=== PATIENT | male | born 1960 | race African-American/Black ===

== ENCOUNTER 2017-05-14 11:41 | Emergency (ER) | payer MEDICAID ==
[~2017-05-14] VITALS: Ht 180.3 cm; Wt 83.0 kg
[~2017-05-14 11:41] MED LIST: ASPI-1158 PO; FURO40TA5 PO; NIFE30TA43 PO; SEVE800T8 PO; SODI650T PO
[2017-05-14 11:48] VITALS: BP 165/98
== END 2017-05-14 14:11 | disposition home or self-care (01) ==
LOC: ER 12:10
DX: Z00.8 Encounter for other general examination (principal); E11.9 Type 2 diabetes mellitus without complications; I12.9 Hypertensive chronic kidney disease with stage 1 through stage 4 chronic kidney disease, or unspecified chronic kidney disease; N18.9 Chronic kidney disease, unspecified; F12.10 Cannabis abuse, uncomplicated; Z79.82 Long term (current) use of aspirin; Z99.2 Dependence on renal dialysis; Z88.6 Allergy status to analgesic agent
CPT/HCPCS: 71020; 99284

== ENCOUNTER 2017-12-12 07:09 | Emergency (ER) | payer MEDICAID ==
[~2017-12-12] VITALS: Ht 180.3 cm; Wt 82.0 kg
[2017-12-12 07:34] VITALS: BP 155/95
[2017-12-12] MEDS ORDERED: TRAMADOL 50MG TABLET PO ONE (08:15)
== END 2017-12-12 09:40 | disposition home or self-care (01) ==
LOC: ER 07:27
DX: M23.8X2 Other internal derangements of left knee (principal); I12.0 Hypertensive chronic kidney disease with stage 5 chronic kidney disease or end stage renal disease; N18.6 End stage renal disease; Z99.2 Dependence on renal dialysis; Z98.890 Other specified postprocedural states; Z88.6 Allergy status to analgesic agent
CPT/HCPCS: 73562; 99284

== ENCOUNTER 2018-02-24 17:16 | Inpatient (IN) | payer MEDICAID ==
[~2018-02-24] VITALS: Ht 304.8 cm; Wt 82.6 kg
[2018-02-24] MEDS ORDERED: MORPHINE SULFATE 4 MG/ML CPJ (NOT FOR IM USE) IV STA (21:11)
[2018-02-24] MEDS ORDERED: ONDANSETRON HCL 4MG/2ML VIAL IV STA (21:11)
[2018-02-24 21:33] LABS: CHLORIDE 103 mEq/L (98-107)
[2018-02-24 21:34] LABS: BASOPHILS % 1.5 % (0.0-2.0); EOSINOPHILS % 3.9 % (0.0-5.0); LYMPHOCYTES % 16.1 % (20.0-50.0); MEAN CORPUSCULAR HEMOGLOBIN 33.3 pg (28.0-32.0); MEAN CORPUSCULAR VOLUME 97.6 fL (80.0-94.0); MEAN PLATELET VOLUME 7.7 fl (7.4-10.4); MONOCYTES % 8.2 % (2.0-8.0); NEUTROPHILS % 70.3 % (40.0-76.0); PLATELET 280 x1000/uL (130-400); RED BLOOD CELL COUNT 3.59 mill/uL (4.7-6.1); RED CELL DISTRIBUTION WIDTH 16.9 % (11.6-14.6)
[2018-02-24] MEDS ORDERED: IOHEXOL-300 100 ML BOTTLE ONE (22:04)
[2018-02-25] VITALS (7 sets, daily range): BP systolic 138–158; BP diastolic 75–93
[2018-02-25] MEDS ORDERED: ACETAMINOPHEN 325MG TABLET PO PRN (08:15)
[2018-02-25] MEDS ORDERED: IPRATROPIUM/ALBUTEROL 0.5-3(2.5)MG/3ML NEB INH PRN (08:15)
[2018-02-25] MEDS ORDERED: HYDROCODONE/ACETAMINOPHEN 5/325MG TABLET PO PRN (08:15)
[2018-02-25] MEDS ORDERED: ACETAMINOPHEN 650MG SUPP PR PRN (08:15)
[2018-02-25] MEDS ORDERED: ACETAMINOPHEN 650MG/20.3ML UDC GT PRN (08:15)
[2018-02-25] MEDS ORDERED: DOCUSATE SODIUM 100MG CAPSULE PO PRN (08:15)
[2018-02-25] MEDS ORDERED: LORAZEPAM 0.5MG TABLET PO PRN (08:15)
[2018-02-25] MEDS ORDERED: DIPHENHYDRAMINE 50MG/ML VIAL IV PRN (08:15)
[2018-02-25] MEDS ORDERED: NA PHOS,M-B/NA PHOS,DI-BA ENEMA 118ML PR PRN (08:15)
[2018-02-25] MEDS ORDERED: GUAIFENESIN 200MG/10ML SUGAR FREE UDC PO PRN (08:15)
[2018-02-25] MEDS ORDERED: MAGNESIUM/ALUMINUM HYDROXIDE/SIMETHICONE 30ML UDC PO PRN (08:15)
[2018-02-25] MEDS ORDERED: ONDANSETRON HCL 4MG/2ML VIAL IV PRN (08:15)
[2018-02-25] MEDS: SEVELAMER CARBONATE 800 MG TABLET PO SCH ×3 (09:08→17:36)
[2018-02-25] MEDS: ASPIRIN 81MG EC TABLET PO SCH (09:08)
[2018-02-25] MEDS: HYDROCODONE/ACETAMINOPHEN 10/325MG TABLET PO PRN ×2 (09:17→13:17)
[2018-02-25] MEDS: NIFEDIPINE XL 30MG TAB PO SCH (17:37)
[2018-02-25] MEDS: LOSARTAN POTASSIUM 25 MG TABLET PO SCH (20:56)
[2018-02-26 04:00] VITALS: BP 128/77
[2018-02-26] MEDS: NIFEDIPINE XL 30MG TAB PO SCH ×2 (06:00→18:07)
[2018-02-26 07:38] VITALS: BP 178/106
[2018-02-26 07:38] LABS: INR 1.1; PROTHROMBIN TIME 11.2 sec (9.4-11.6)
[2018-02-26 07:41] LABS: BASOPHILS % 2.5 % (0.0-2.0); EOSINOPHILS % 5.1 % (0.0-5.0); HEMATOCRIT. 32.6 % (42.0-52.0); LYMPHOCYTES % 23.2 % (20.0-50.0); MEAN CORPUSCULAR HEMOGLOBIN 32.7 pg (28.0-32.0); MEAN CORPUSCULAR VOLUME 97.3 fL (80.0-94.0); MEAN PLATELET VOLUME 7.5 fl (7.4-10.4); MONOCYTES % 8.7 % (2.0-8.0); NEUTROPHILS % 60.5 % (40.0-76.0); PLATELET 223 x1000/uL (130-400); RED BLOOD CELL COUNT 3.35 mill/uL (4.7-6.1); RED CELL DISTRIBUTION WIDTH 16.9 % (11.6-14.6)
[2018-02-26 08:07] LABS: CHLORIDE 102 mEq/L (98-107)
[2018-02-26 08:16] LABS: LDL CHOLESTEROL 55 mg/dL (5-100)
[2018-02-26 08:18] LABS: HDL CHOLESTEROL 74 mg/dL (40-59); PHOSPHORUS 5.1 mg/dL (2.5-4.9)
[2018-02-26 08:22] LABS: CREATINE KINASE 76 IU/L (39-308)
[2018-02-26 08:23] LABS: T4 FREE 0.77 ng/dL (0.76-1.46)
[2018-02-26] MEDS: SEVELAMER CARBONATE 800 MG TABLET PO SCH ×3 (09:06→18:07)
[2018-02-26] MEDS: ASPIRIN 81MG EC TABLET PO SCH (09:06)
[2018-02-26] MEDS: LOSARTAN POTASSIUM 25 MG TABLET PO SCH ×2 (09:12→20:39)
[2018-02-26] MEDS: HYDROCODONE/ACETAMINOPHEN 10/325MG TABLET PO PRN ×2 (09:13→20:40)
[2018-02-26] MEDS ORDERED: CLONIDINE 0.1MG TABLET PO PRN (10:00)
[2018-02-26 12:00] VITALS: BP 130/77
[2018-02-26 16:00] VITALS: BP 136/80
[2018-02-26 20:00] VITALS: BP 155/76
[2018-02-27] VITALS: BP 145/81
[2018-02-27 04:00] VITALS: BP 140/83
[2018-02-27] MEDS: NIFEDIPINE XL 30MG TAB PO SCH (06:11)
[2018-02-27 06:21] LABS: BASOPHILS % 2.6 % (0.0-2.0); EOSINOPHILS % 8.1 % (0.0-5.0); HEMATOCRIT. 33.4 % (42.0-52.0); HEMOGLOBIN. 11.1 g/dL (14.0-18.0); LYMPHOCYTES % 27.6 % (20.0-50.0); MEAN CORPUSCULAR HEMOGLOBIN 32.5 pg (28.0-32.0); MEAN CORPUSCULAR VOLUME 98.2 fL (80.0-94.0); MEAN PLATELET VOLUME 7.3 fl (7.4-10.4); MONOCYTES % 11.6 % (2.0-8.0); NEUTROPHILS % 50.1 % (40.0-76.0); PLATELET 207 x1000/uL (130-400); RED BLOOD CELL COUNT 3.41 mill/uL (4.7-6.1); RED CELL DISTRIBUTION WIDTH 17.2 % (11.6-14.6)
[2018-02-27 07:07] LABS: CHLORIDE 101 mEq/L (98-107)
[2018-02-27] MEDS ORDERED: NIFE30TA94 MT (07:55)
[2018-02-27] MEDS ORDERED: LOSA25TA12 PO (07:55)
[2018-02-27 08:00] VITALS: BP 113/83
[2018-02-27] MEDS: SEVELAMER CARBONATE 800 MG TABLET PO SCH ×2 (08:54→12:49)
[2018-02-27] MEDS: ASPIRIN 81MG EC TABLET PO SCH (08:55)
[2018-02-27] MEDS: LOSARTAN POTASSIUM 25 MG TABLET PO SCH (09:00)
[2018-02-27 11:26] VITALS: BP 113/83
[2018-02-27 12:00] VITALS: BP 132/73
[2018-02-27 13:23] VITALS: BP 132/73
[2018-02-27] MEDS: HYDROCODONE/ACETAMINOPHEN 10/325MG TABLET PO PRN (13:23)
== END 2018-02-27 15:40 | disposition home or self-care (01) | DRG 347 ==
LOC: ER 18:31 → 8WST 23:58 → ENRESERV 02-25 01:59
PROVIDERS: ADMIT Internal Medicine; ATTEND Internal Medicine
PROC: 5A1D70Z Performance of Urinary Filtration, Intermittent, Less than 6 Hours Per Day (ICD-10-PCS; principal; 2018-02-25)
DX: S32.029A Unspecified fracture of second lumbar vertebra, initial encounter for closed fracture (principal); I13.2 Hypertensive heart and chronic kidney disease with heart failure and with stage 5 chronic kidney disease, or end stage renal disease; N18.6 End stage renal disease; E83.39 Other disorders of phosphorus metabolism; E87.5 Hyperkalemia; S32.019A Unspecified fracture of first lumbar vertebra, initial encounter for closed fracture; S32.039A Unspecified fracture of third lumbar vertebra, initial encounter for closed fracture; S32.049A Unspecified fracture of fourth lumbar vertebra, initial encounter for closed fracture; I50.32 Chronic diastolic (congestive) heart failure; D64.9 Anemia, unspecified; F41.9 Anxiety disorder, unspecified; Z99.2 Dependence on renal dialysis; G89.4 Chronic pain syndrome; W01.0XXA Fall on same level from slipping, tripping and stumbling without subsequent striking against object, initial encounter; Z88.6 Allergy status to analgesic agent; Y93.89 Activity, other specified; Y92.89 Other specified places as the place of occurrence of the external cause; Y99.8 Other external cause status; Z82.49 Family history of ischemic heart disease and other diseases of the circulatory system; Z86.73 Personal history of transient ischemic attack (TIA), and cerebral infarction without residual deficits; Z91.19 Patient's noncompliance with other medical treatment and regimen; M94.0 Chondrocostal junction syndrome [Tietze]
CPT/HCPCS: 36415; 70450; 71045; 71260; 72148; 74177; 80048; 80053; 80061; 80307; 82550; 83690; 83735; 84100; 84439; 84443; 84481; 84484; 85025; 85610; 93005; 93970; 96374; 96375; 97162; 99285; J2270; J2405; J7030; Q9967

== ENCOUNTER 2018-07-08 17:43 | Inpatient (IN) | payer MEDICAID ==
[~2018-07-08] VITALS: Ht 180.3 cm; Wt 82.6 kg
[~2018-07-08 17:43] MED LIST changes: +BENZ100C86 PO; -FURO40TA5 PO; -NIFE30TA43 PO; +NIFE90TA34 PO; +P20 PO; -SODI650T PO
[2018-07-08] MEDS ORDERED: HYDRALAZINE 20MG/ML VIAL IV ONE (18:15)
[2018-07-08] MEDS ORDERED: LABETALOL 5MG/ML SYR 20 MG/4 ML SYRINGE IV ONE (18:45)
[2018-07-08 19:06] LABS: BG BASE EXCESS -4.9 mmol/L (-2.0-2.0); BG DEOXYHEMOGLOBIN 4.3 % (0.0-5.0); BG FRACTION INSPIRED OXYGEN 21; BG HCO3 ACT 18.9 mmol/L (22.0-26.0); BG METHEMOGLOBIN 0.2 % (0.0-1.5); BG OXYGEN SATURATION 95.6 % (92.0-98.5); BG OXYHEMOGLOBIN 94.5 % (94.0-97.0); BG PCO2 31.3 mmHg (35.0-45.0); BG PH 7.399 (7.350-7.450); BG PO2 86.7 mmHg (75.0-100.0); BG SAMPLE SITE RIGHT RADIAL; BG TOTAL HEMOGLOBIN 12.6 g/dL (12.0-18.0); BG VENT MODE ROOM AIR
[2018-07-08 19:29] LABS: BASOPHILS % 1.2 % (0.0-2.0); CHLORIDE 105 mEq/L (98-107); EOSINOPHILS % 3.5 % (0.0-5.0); HEMATOCRIT. 35.5 % (42.0-52.0); HEMOGLOBIN. 11.6 g/dL (14.0-18.0); LYMPHOCYTES % 12.6 % (20.0-50.0); MEAN CORPUSCULAR HEMOGLOBIN 32.7 pg (28.0-32.0); MEAN CORPUSCULAR VOLUME 99.9 fL (80.0-94.0); MEAN PLATELET VOLUME 7.8 fl (7.4-10.4); MONOCYTES % 12.1 % (2.0-8.0); NEUTROPHILS % 70.6 % (40.0-76.0); PLATELET 230 x1000/uL (130-400); RED BLOOD CELL COUNT 3.55 mill/uL (4.7-6.1); RED CELL DISTRIBUTION WIDTH 16.9 % (11.6-14.6)
[2018-07-08 19:35] LABS: INR 1.1; PARTIAL THROMBOPLASTIN TIME 30.1 sec (23.4-31.0); PROTHROMBIN TIME 11.1 sec (9.1-11.1)
[2018-07-08 19:37] LABS: ETHANOL BLOOD < 10 mg/dL
[2018-07-08 19:39] LABS: PHOSPHORUS 5.8 mg/dL (2.5-4.9)
[2018-07-08] MEDS ORDERED: ENALAPRIL 2.5MG/2ML VIAL 2ML IV NR (23:45)
[2018-07-09 00:52] VITALS: BP 166/91
[2018-07-09 00:54] VITALS: BP 166/91
[2018-07-09 04:00] VITALS: BP 144/82
[2018-07-09] MEDS ORDERED: IPRATROPIUM/ALBUTEROL 0.5-3(2.5)MG/3ML NEB INH PRN (04:00)
[2018-07-09] MEDS ORDERED: DIPHENHYDRAMINE 50MG/ML VIAL IV PRN (04:00)
[2018-07-09] MEDS ORDERED: HYDROMORPHONE HCL/PF 2MG/ML CPJ IV PRN (04:00)
[2018-07-09] MEDS ORDERED: DOCUSATE SODIUM 100MG CAPSULE PO PRN (04:00)
[2018-07-09] MEDS ORDERED: ONDANSETRON 4MG ODT PO PRN (04:00)
[2018-07-09 08:00] VITALS: BP_SYST 146; BP_DIAS 92; BP_DIAS 96
[2018-07-09] MEDS: AMLODIPINE 10MG TABLET PO SCH (09:01)
[2018-07-09 12:00] VITALS: BP 156/87
[2018-07-09 20:00] VITALS: BP 180/102
[2018-07-09] MEDS: CLONIDINE 0.1MG TABLET PO PRN (22:20)
[2018-07-10] VITALS: BP 150/89
[2018-07-10 04:00] VITALS: BP 174/105
[2018-07-10] MEDS: CLONIDINE 0.1MG TABLET PO PRN ×2 (04:16→12:51)
[2018-07-10 08:00] VITALS: BP 146/93
[2018-07-10] MEDS: AMLODIPINE 10MG TABLET PO SCH (09:27)
[2018-07-10] MEDS: LOSARTAN POTASSIUM 50 MG TABLET PO SCH ×2 (10:45→12:50)
[2018-07-10 12:00] VITALS: BP 179/108
[2018-07-10] MEDS ORDERED: HEPARIN SODIUM 1,000 UNIT/1ML VIAL IV NR (15:00)
[2018-07-10 15:17] LABS: CHLORIDE 104 mEq/L (98-107)
[2018-07-10 15:25] LABS: BASOPHILS % 1.5 % (0.0-2.0); EOSINOPHILS % 3.2 % (0.0-5.0); HEMATOCRIT. 34.2 % (42.0-52.0); HEMOGLOBIN. 11.3 g/dL (14.0-18.0); LYMPHOCYTES % 15.5 % (20.0-50.0); MEAN CORPUSCULAR HEMOGLOBIN 33.3 pg (28.0-32.0); MEAN CORPUSCULAR VOLUME 100.5 fL (80.0-94.0); MEAN PLATELET VOLUME 8.1 fl (7.4-10.4); MONOCYTES % 9.5 % (2.0-8.0); NEUTROPHILS % 70.3 % (40.0-76.0); PLATELET 202 x1000/uL (130-400); RED CELL DISTRIBUTION WIDTH 16.3 % (11.6-14.6)
[2018-07-10 16:00] VITALS: BP 161/104
[2018-07-11] VITALS: BP 143/88
[2018-07-11 04:00] VITALS: BP 145/89
[2018-07-11 09:00] VITALS: BP 134/77
[2018-07-11] MEDS: LOSARTAN POTASSIUM 50 MG TABLET PO SCH (09:00)
[2018-07-11] MEDS: AMLODIPINE 10MG TABLET PO SCH (09:00)
[2018-07-11 10:24] VITALS: BP 125/73
== END 2018-07-11 12:30 | disposition home or self-care (01) | DRG 194 ==
LOC: ER 17:43 → 7WST 19:45 → EDBEDREQ 19:46 → EDBEDREQTM 19:46 → ENRESERV 23:46
PROVIDERS: ADMIT Hospitalist; ATTEND Hospitalist
PROC: 5A1D70Z Performance of Urinary Filtration, Intermittent, Less than 6 Hours Per Day (ICD-10-PCS; principal; 2018-07-09)
PROC: 5A1D70Z Performance of Urinary Filtration, Intermittent, Less than 6 Hours Per Day (ICD-10-PCS; 2018-07-10)
DX: I13.2 Hypertensive heart and chronic kidney disease with heart failure and with stage 5 chronic kidney disease, or end stage renal disease (principal); N17.9 Acute kidney failure, unspecified; I27.20 Pulmonary hypertension, unspecified; N18.6 End stage renal disease; I50.33 Acute on chronic diastolic (congestive) heart failure; D63.1 Anemia in chronic kidney disease; M54.9 Dorsalgia, unspecified; F41.9 Anxiety disorder, unspecified; G89.4 Chronic pain syndrome; Z99.2 Dependence on renal dialysis; Z91.15 Patient's noncompliance with renal dialysis; Z88.6 Allergy status to analgesic agent; Z79.82 Long term (current) use of aspirin; Z79.899 Other long term (current) drug therapy; Z91.81 History of falling; Z87.81 Personal history of (healed) traumatic fracture; Z82.49 Family history of ischemic heart disease and other diseases of the circulatory system
CPT/HCPCS: 36415; 36600; 71045; 80053; 82375; 82805; 83690; 83735; 84100; 84484; 85025; 85610; 85730; 93005; 93306; 96374; 96375; 99291; G0482; J1644; J3490; J7030; J7050

== ENCOUNTER 2018-07-17 20:59 | Inpatient (IN) | payer MEDICAID ==
[~2018-07-17] VITALS: Ht 152.4 cm; Wt 79.4 kg
[2018-07-18 00:33] LABS: HEMATOCRIT. 34.5 % (42.0-52.0); HEMOGLOBIN. 11.4 g/dL (14.0-18.0); MEAN CORPUSCULAR HEMOGLOBIN 32.6 pg (28.0-32.0); MEAN CORPUSCULAR VOLUME 98.2 fL (80.0-94.0); MEAN PLATELET VOLUME 7.9 fl (7.4-10.4); PLATELET 295 x1000/uL (130-400); RED BLOOD CELL COUNT 3.51 mill/uL (4.7-6.1)
[2018-07-18 00:46] LABS: INR 1.1; PARTIAL THROMBOPLASTIN TIME 34.1 sec (23.4-31.0); PROTHROMBIN TIME 10.9 sec (9.1-11.1)
[2018-07-18 00:49] LABS: CHLORIDE 102 mEq/L (98-107)
[2018-07-18] MEDS ORDERED: CALCIUM GLUCONATE 100MG/ML 10ML VIAL IV ONE (01:00)
[2018-07-18] MEDS ORDERED: FUROSEMIDE 40MG/4ML VIAL IVP NR (01:45)
[2018-07-18 04:00] VITALS: BP 150/70
[2018-07-18 04:56] LABS: CLARITY URINE CLEAR (CLEAR); COLOR URINE YELLOW (YELLOW); KETONES URINE NEGATIVE (NEGATIVE); LEUKOCYTE ESTERASE URINE NEGATIVE (NEGATIVE); NITRITE URINE NEGATIVE (NEGATIVE); OCCULT BLOOD URINE 1+ (NEGATIVE); PH URINE >=9.0 (4.5-8.0); PROTEIN URINE 2+ (NEGATIVE); SPECIFIC GRAVITY URINE 1.009 (1.005-1.030); UROBILINOGEN URINE 0.2 E.U./dL (0.2-1.0)
[2018-07-18 05:17] LABS: PLATELET ESTIMATE NORMAL
[2018-07-18 08:00] VITALS: BP 149/94
[2018-07-18] MEDS ORDERED: ONDANSETRON HCL 4MG/2ML INJ IV PRN (09:30)
[2018-07-18] MEDS ORDERED: ACETAMINOPHEN 650MG SUPP PR PRN (09:30)
[2018-07-18] MEDS ORDERED: MAGNESIUM/ALUMINUM HYDROXIDE/SIMETHICONE 30ML UDC PO PRN (09:30)
[2018-07-18] MEDS ORDERED: ACETAMINOPHEN 325MG TABLET PO PRN (09:30)
[2018-07-18] MEDS ORDERED: HYDROCODONE/ACETAMINOPHEN 10/325MG TABLET PO PRN (09:30)
[2018-07-18] MEDS ORDERED: HYDROCODONE/ACETAMINOPHEN 5/325MG TABLET PO PRN (09:30)
[2018-07-18] MEDS ORDERED: IPRATROPIUM/ALBUTEROL 0.5-3(2.5)MG/3ML NEB INH PRN (09:30)
[2018-07-18] MEDS ORDERED: ACETAMINOPHEN 650MG/20.3ML UDC GT PRN (09:30)
[2018-07-18] MEDS ORDERED: FURO-152 PO (10:59)
[2018-07-18 12:00] VITALS: BP 143/89
[2018-07-18] MEDS ORDERED: DIPHENHYDRAMINE 50MG/ML VIAL IV NR (12:15)
[2018-07-18] MEDS: NIFEDIPINE XL 60MG TAB PO SCH (12:45)
[2018-07-18] MEDS ORDERED: DIPHENHYDRAMINE 50MG/ML VIAL IV PRN (13:00)
[2018-07-18] MEDS ORDERED: BENZONATATE 100MG CAPSULE PO PRN (13:00)
[2018-07-18 13:37] LABS: AMMONIA 59 uMol/L (<32)
[2018-07-18] MEDS: ASPIRIN 81MG TABLET PO SCH (14:07)
[2018-07-18] MEDS ORDERED: HEPARIN SODIUM 1,000 UNIT/1ML VIAL IV SCH (14:30)
[2018-07-18 15:59] LABS: CREATINE KINASE MB FRACTION 1.1 ng/mL (0.5-3.6)
[2018-07-18 16:00] VITALS: BP 163/85
[2018-07-18] MEDS: IPRATROPIUM/ALBUTEROL 0.5-3(2.5)MG/3ML NEB HHN SCH ×2 (16:00→21:14)
[2018-07-18 21:30] VITALS: BP 176/95
[2018-07-18] MEDS: LACTULOSE 20G/30ML UDC PO SCH (21:57)
[2018-07-19] MEDS: IPRATROPIUM/ALBUTEROL 0.5-3(2.5)MG/3ML NEB HHN SCH ×4 (01:29→21:00)
[2018-07-19 03:30] VITALS: BP 165/97
[2018-07-19 06:10] LABS: BASOPHILS % 0.7 % (0.0-2.0); EOSINOPHILS % 3.1 % (0.0-5.0); LYMPHOCYTES % 9.5 % (20.0-50.0); MEAN CORPUSCULAR HEMOGLOBIN 33.2 pg (28.0-32.0); MEAN CORPUSCULAR VOLUME 99.6 fL (80.0-94.0); MEAN PLATELET VOLUME 7.8 fl (7.4-10.4); MONOCYTES % 10.8 % (2.0-8.0); NEUTROPHILS % 75.9 % (40.0-76.0); PLATELET 270 x1000/uL (130-400); RED BLOOD CELL COUNT 3.32 mill/uL (4.7-6.1); RED CELL DISTRIBUTION WIDTH 15.9 % (11.6-14.6)
[2018-07-19 06:35] LABS: CHLORIDE 103 mEq/L (98-107)
[2018-07-19 07:01] LABS: LDL CHOLESTEROL 44 mg/dL (5-100)
[2018-07-19 07:02] LABS: CREATINE KINASE 33 IU/L (39-308); CREATINE KINASE MB FRACTION < 1.0 ng/mL (0.5-3.6); T4 FREE 0.82 ng/dL (0.76-1.46)
[2018-07-19 07:03] LABS: HDL CHOLESTEROL 69 mg/dL (40-59)
[2018-07-19 08:00] VITALS: BP 174/93
[2018-07-19 08:17] VITALS: BP 174/93
[2018-07-19] MEDS: ASPIRIN 81MG TABLET PO SCH (09:33)
[2018-07-19] MEDS: NIFEDIPINE XL 60MG TAB PO SCH (09:33)
[2018-07-19] MEDS: LACTULOSE 20G/30ML UDC PO SCH ×2 (09:35→16:23)
[2018-07-19 12:00] VITALS: BP 158/90
[2018-07-19] MEDS: DOXAZOSIN MESYLATE 2MG TABLET PO SCH ×2 (12:34→16:34)
[2018-07-19 16:00] VITALS: BP 163/90
[2018-07-19] MEDS: ASCORBIC ACID 500 MG TABLET PO SCH (20:43)
[2018-07-20] MEDS: IPRATROPIUM/ALBUTEROL 0.5-3(2.5)MG/3ML NEB HHN SCH ×2 (01:09→01:10)
[2018-07-20 07:11] LABS: BASOPHILS % 1.1 % (0.0-2.0); HEMATOCRIT. 32.4 % (42.0-52.0); HEMOGLOBIN. 10.9 g/dL (14.0-18.0); LYMPHOCYTES % 13.3 % (20.0-50.0); MEAN CORPUSCULAR HEMOGLOBIN 33.4 pg (28.0-32.0); MEAN CORPUSCULAR VOLUME 99.3 fL (80.0-94.0); MEAN PLATELET VOLUME 7.6 fl (7.4-10.4); MONOCYTES % 11.6 % (2.0-8.0); PLATELET 255 x1000/uL (130-400); RED BLOOD CELL COUNT 3.26 mill/uL (4.7-6.1)
[2018-07-20 07:17] LABS: PHOSPHORUS 5.8 mg/dL (2.5-4.9)
[2018-07-20] MEDS: ASCORBIC ACID 500 MG TABLET PO SCH ×2 (11:19→21:00)
[2018-07-20] MEDS: LACTULOSE 20G/30ML UDC PO SCH ×2 (11:19→17:00)
[2018-07-20] MEDS: ASPIRIN 81MG TABLET PO SCH (11:20)
[2018-07-20] MEDS: DOXAZOSIN MESYLATE 2MG TABLET PO SCH ×2 (11:33→17:00)
[2018-07-20] MEDS: NIFEDIPINE XL 60MG TAB PO SCH (11:33)
[2018-07-20 12:00] VITALS: BP 167/92
[2018-07-20] MEDS ORDERED: DOXA2TAB PO (13:25)
[2018-07-20] MEDS ORDERED: NIFE60TA64 PO (13:29)
[2018-07-20 15:49] LABS: AMMONIA 39 uMol/L (<32)
[2018-07-20 16:00] VITALS: BP 150/78
[2018-07-20 20:00] VITALS: BP 166/94
[2018-07-20 22:35] VITALS: BP 155/85
[2018-07-20 22:53] VITALS: BP 155/85
== END 2018-07-20 22:50 | disposition home or self-care (01) | DRG 113 ==
LOC: ER 20:59 → 7WST 07-18 01:40 → EDBEDREQ 07-18 01:50 → ENRESERV 07-18 03:21
PROVIDERS: ADMIT Internal Medicine; ATTEND Internal Medicine
PROC: 5A1D70Z Performance of Urinary Filtration, Intermittent, Less than 6 Hours Per Day (ICD-10-PCS; principal; 2018-07-18)
PROC: 5A1D70Z Performance of Urinary Filtration, Intermittent, Less than 6 Hours Per Day (ICD-10-PCS; 2018-07-20)
DX: J00 Acute nasopharyngitis [common cold] (principal); I13.2 Hypertensive heart and chronic kidney disease with heart failure and with stage 5 chronic kidney disease, or end stage renal disease; N18.6 End stage renal disease; I27.20 Pulmonary hypertension, unspecified; E44.0 Moderate protein-calorie malnutrition; I50.32 Chronic diastolic (congestive) heart failure; D63.8 Anemia in other chronic diseases classified elsewhere; F17.210 Nicotine dependence, cigarettes, uncomplicated; F41.9 Anxiety disorder, unspecified; G89.4 Chronic pain syndrome; J44.9 Chronic obstructive pulmonary disease, unspecified; Z53.29 Procedure and treatment not carried out because of patient's decision for other reasons; Z99.2 Dependence on renal dialysis; Z91.19 Patient's noncompliance with other medical treatment and regimen; Z88.6 Allergy status to analgesic agent; Z68.34 Body mass index [BMI] 34.0-34.9, adult; Z91.81 History of falling; Z87.81 Personal history of (healed) traumatic fracture; Z79.899 Other long term (current) drug therapy; Z79.82 Long term (current) use of aspirin
CPT/HCPCS: 36415; 71045; 80048; 80053; 80061; 81003; 82140; 82550; 82553; 82693; 83036; 83690; 83735; 83880; 84100; 84439; 84443; 84481; 84484; 85025; 85610; 85730; 93005; 93970; 96374; 96375; 99285; J0610; J1644; J1940; J7030; J7050; J7620

== ENCOUNTER 2018-07-22 20:17 | Emergency (ER) | payer MEDICAID ==
[~2018-07-22] VITALS: Ht 180.3 cm; Wt 81.0 kg
[~2018-07-22 20:17] MED LIST changes: +DOXA2TAB PO; +FURO-152 PO; +NIFE60TA64 PO; -NIFE90TA34 PO; -P20 PO
[2018-07-23] MEDS ORDERED: LEVOFLOXACIN 250MG TABLET PO NR (02:45)
[2018-07-23 02:51] VITALS: BP 140/90
== END 2018-07-23 03:06 | disposition home or self-care (01) ==
LOC: ER 20:17
DX: J18.9 Pneumonia, unspecified organism (principal); I12.0 Hypertensive chronic kidney disease with stage 5 chronic kidney disease or end stage renal disease; E11.22 Type 2 diabetes mellitus with diabetic chronic kidney disease; N18.6 End stage renal disease; Z99.2 Dependence on renal dialysis; Z79.82 Long term (current) use of aspirin; Z79.899 Other long term (current) drug therapy
CPT/HCPCS: 71045; 99283

== ENCOUNTER 2018-07-27 23:45 | Emergency (ER) | payer MEDICAID ==
[~2018-07-27] VITALS: Ht 185.4 cm; Wt 87.0 kg
[2018-07-28 00:38] VITALS: BP 167/101
== END 2018-07-28 02:40 | disposition left against medical advice (07) ==
LOC: ER 07-28 02:40
DX: R06.02 Shortness of breath (principal); Z53.21 Procedure and treatment not carried out due to patient leaving prior to being seen by health care provider

== ENCOUNTER 2018-07-28 03:01 | Inpatient (IN) | payer MEDICAID ==
[~2018-07-28] VITALS: Ht 180.3 cm; Wt 88.5 kg
[2018-07-28] MEDS ORDERED: FUROSEMIDE 40MG/4ML VIAL IVP ONE (03:45)
[2018-07-28 04:55] LABS: HEMATOCRIT 33.4 % (42.0-52.0); MEAN CORPUSCULAR HEMOGLOBIN 32.1 pg (28.0-32.0); MEAN CORPUSCULAR VOLUME 97.7 fL (80.0-94.0); PLATELET 350 x1000/uL (130-400); RED BLOOD CELL COUNT 3.42 mill/uL (4.7-6.1); RED CELL DISTRIBUTION WIDTH 16.1 % (11.6-14.6)
[2018-07-28 06:41] LABS: CHLORIDE 103 mEq/L (98-107)
[2018-07-28] MEDS ORDERED: ONDANSETRON HCL 4MG/2ML INJ IV PRN (09:30)
[2018-07-28] MEDS ORDERED: HYDROCODONE/ACETAMINOPHEN 5/325MG TABLET PO PRN (09:30)
[2018-07-28] MEDS ORDERED: MAGNESIUM/ALUMINUM HYDROXIDE/SIMETHICONE 30ML UDC PO PRN (09:30)
[2018-07-28] MEDS ORDERED: HYDROCODONE/ACETAMINOPHEN 10/325MG TABLET PO PRN (09:30)
[2018-07-28] MEDS ORDERED: ACETAMINOPHEN 325MG TABLET PO PRN (09:30)
[2018-07-28] MEDS ORDERED: ACETAMINOPHEN 650MG SUPP PR PRN (09:30)
[2018-07-28] MEDS ORDERED: ACETAMINOPHEN 650MG/20.3ML UDC GT PRN (09:30)
[2018-07-28 15:40] VITALS: BP 180/106
[2018-07-28 16:00] VITALS: BP 187/106
[2018-07-28] MEDS: ASPIRIN 81MG TABLET PO SCH (17:45)
[2018-07-28] MEDS: SEVELAMER CARBONATE 800 MG TABLET PO SCH (17:50)
[2018-07-28] MEDS: NIFEDIPINE XL 90MG TAB PO SCH (18:00)
[2018-07-28 20:00] VITALS: BP 159/80
[2018-07-28] MEDS: DOXAZOSIN MESYLATE 2MG TABLET PO SCH (21:00)
[2018-07-29] VITALS: BP 146/81
[2018-07-29 04:00] VITALS: BP 136/80
[2018-07-29] MEDS: SEVELAMER CARBONATE 800 MG TABLET PO SCH ×3 (07:50→17:50)
[2018-07-29] MEDS: ASPIRIN 81MG TABLET PO SCH (08:34)
[2018-07-29] MEDS: NIFEDIPINE XL 90MG TAB PO SCH (08:34)
[2018-07-29 10:45] LABS: BASOPHILS % 0.9 % (0.0-2.0); EOSINOPHILS % 2.9 % (0.0-5.0); HEMOGLOBIN. 10.4 g/dL (14.0-18.0); LYMPHOCYTES % 11.4 % (20.0-50.0); MEAN CORPUSCULAR HEMOGLOBIN 32.6 pg (28.0-32.0); MEAN CORPUSCULAR VOLUME 97.5 fL (80.0-94.0); MEAN PLATELET VOLUME 7.3 fl (7.4-10.4); MONOCYTES % 6.9 % (2.0-8.0); NEUTROPHILS % 77.9 % (40.0-76.0); PLATELET 239 x1000/uL (130-400); RED BLOOD CELL COUNT 3.18 mill/uL (4.7-6.1); RED CELL DISTRIBUTION WIDTH 16.1 % (11.6-14.6)
[2018-07-29 11:13] LABS: CHLORIDE 102 mEq/L (98-107)
[2018-07-29 11:24] LABS: LDL CHOLESTEROL 36 mg/dL (5-100)
[2018-07-29 11:25] LABS: CREATINE KINASE 37 IU/L (39-308); CREATINE KINASE MB FRACTION 1.3 ng/mL (0.5-3.6); HDL CHOLESTEROL 65 mg/dL (40-59); T4 FREE 0.85 ng/dL (0.76-1.46)
[2018-07-29] MEDS: DOXAZOSIN MESYLATE 2MG TABLET PO SCH (20:57)
[2018-07-30 08:00] VITALS: BP 161/103
[2018-07-30] MEDS: SEVELAMER CARBONATE 800 MG TABLET PO SCH ×3 (08:52→17:50)
[2018-07-30] MEDS: NIFEDIPINE XL 90MG TAB PO SCH (08:52)
[2018-07-30] MEDS: ASPIRIN 81MG TABLET PO SCH (08:52)
[2018-07-30 09:48] LABS: EOSINOPHILS % 2.6 % (0.0-5.0); HEMATOCRIT. 32.4 % (42.0-52.0); HEMOGLOBIN. 10.9 g/dL (14.0-18.0); LYMPHOCYTES % 10.2 % (20.0-50.0); MEAN CORPUSCULAR HEMOGLOBIN 32.6 pg (28.0-32.0); MEAN PLATELET VOLUME 7.6 fl (7.4-10.4); MONOCYTES % 7.4 % (2.0-8.0); NEUTROPHILS % 78.8 % (40.0-76.0); PLATELET 224 x1000/uL (130-400); RED BLOOD CELL COUNT 3.34 mill/uL (4.7-6.1)
[2018-07-30] MEDS ORDERED: DOXA2TAB PO (15:38)
[2018-07-30 20:00] VITALS: BP 149/83
[2018-07-30] MEDS: DOXAZOSIN MESYLATE 2MG TABLET PO SCH (21:00)
[2018-07-30 21:19] VITALS: BP 149/83
== END 2018-07-30 22:35 | disposition home or self-care (01) | DRG 194 ==
LOC: ER 03:01 → 6WST 06:17 → ENRESERV 14:49
PROVIDERS: ADMIT Internal Medicine; ATTEND Internal Medicine
PROC: 5A1D70Z Performance of Urinary Filtration, Intermittent, Less than 6 Hours Per Day (ICD-10-PCS; principal; 2018-07-28)
PROC: 5A1D70Z Performance of Urinary Filtration, Intermittent, Less than 6 Hours Per Day (ICD-10-PCS; 2018-07-30)
DX: I13.2 Hypertensive heart and chronic kidney disease with heart failure and with stage 5 chronic kidney disease, or end stage renal disease (principal); I27.20 Pulmonary hypertension, unspecified; N18.6 End stage renal disease; E44.0 Moderate protein-calorie malnutrition; I50.33 Acute on chronic diastolic (congestive) heart failure; D64.9 Anemia, unspecified; Z99.2 Dependence on renal dialysis; F41.9 Anxiety disorder, unspecified; F17.210 Nicotine dependence, cigarettes, uncomplicated; M54.9 Dorsalgia, unspecified; G89.4 Chronic pain syndrome; Z68.27 Body mass index [BMI] 27.0-27.9, adult; Z88.6 Allergy status to analgesic agent; J44.9 Chronic obstructive pulmonary disease, unspecified; Z91.19 Patient's noncompliance with other medical treatment and regimen; Z91.81 History of falling; Z79.82 Long term (current) use of aspirin; Z79.899 Other long term (current) drug therapy
CPT/HCPCS: 36415; 71045; 80048; 80053; 80061; 82550; 82553; 83036; 83690; 84439; 84443; 84481; 84484; 85025; 85027; 93970; 96374; 97162; 99285; J1940; J7030

== ENCOUNTER 2018-08-08 08:31 | Emergency (ER) | payer MEDICAID ==
[~2018-08-08] VITALS: Ht 177.8 cm; Wt 81.0 kg
[~2018-08-08 08:31] MED LIST changes: -BENZ100C86 PO; -FURO-152 PO
[2018-08-08 10:57] VITALS: BP 138/84
== END 2018-08-08 11:00 | disposition home or self-care (01) ==
LOC: ER 08:31
DX: Z11.1 Encounter for screening for respiratory tuberculosis (principal); Z86.11 Personal history of tuberculosis; I12.0 Hypertensive chronic kidney disease with stage 5 chronic kidney disease or end stage renal disease; N18.6 End stage renal disease; Z99.2 Dependence on renal dialysis
CPT/HCPCS: 71045; 99283

== ENCOUNTER 2018-08-14 00:51 | Inpatient (IN) | payer MEDICAID ==
[~2018-08-14] VITALS: Ht 180.3 cm; Wt 81.6 kg
[2018-08-14] MEDS ORDERED: ASPIRIN 81MG TABLET PO ONE (03:15)
[2018-08-14] MEDS ORDERED: NITROGLYCERIN OINT 1GM/INCH UDPKT TD ONE (03:15)
[2018-08-14 04:01] LABS: BASOPHILS % 0.4 % (0.0-2.0); EOSINOPHILS % 5.2 % (0.0-5.0); HEMATOCRIT. 30.9 % (42.0-52.0); HEMOGLOBIN. 10.1 g/dL (14.0-18.0); LYMPHOCYTES % 23.4 % (20.0-50.0); MEAN CORPUSCULAR HEMOGLOBIN 31.8 pg (28.0-32.0); MEAN CORPUSCULAR VOLUME 97.1 fL (80.0-94.0); MONOCYTES % 11.1 % (2.0-8.0); NEUTROPHILS % 59.9 % (40.0-76.0); PLATELET 214 x1000/uL (130-400); RED BLOOD CELL COUNT 3.18 mill/uL (4.7-6.1); RED CELL DISTRIBUTION WIDTH 16.5 % (11.6-14.6)
[2018-08-14 08:54] VITALS: BP 171/102
[2018-08-14 09:00] VITALS: BP 171/102
[2018-08-14] MEDS ORDERED: CLONIDINE 0.1MG TABLET PO PRN (11:15)
[2018-08-14] MEDS ORDERED: MORPHINE SULFATE 4 MG/ML CPJ (NOT FOR IM USE) IV PRN (11:15)
[2018-08-14] MEDS: ASPIRIN 81MG TABLET PO SCH (11:15)
[2018-08-14] MEDS ORDERED: ONDANSETRON HCL 4MG/2ML INJ IV PRN (11:15)
[2018-08-14 12:00] VITALS: BP 152/86
[2018-08-14] MEDS: METOPROLOL TARTRATE 50MG TABLET PO SCH ×2 (12:53→21:00)
[2018-08-14] MEDS: NITROGLYCERIN OINT 1GM/INCH UDPKT TD SCH ×2 (13:26→21:41)
[2018-08-14 16:00] VITALS: BP 148/84
[2018-08-14] MEDS: NIFEDIPINE XL 30MG TAB PO SCH (16:22)
[2018-08-14] MEDS: SEVELAMER CARBONATE 800 MG TABLET PO SCH (18:13)
[2018-08-15] MEDS: NITROGLYCERIN OINT 1GM/INCH UDPKT TD SCH ×3 (05:31→21:28)
[2018-08-15 08:00] VITALS: BP 127/84
[2018-08-15] MEDS: NIFEDIPINE XL 30MG TAB PO SCH (09:00)
[2018-08-15] MEDS: METOPROLOL TARTRATE 50MG TABLET PO SCH ×2 (09:00→20:32)
[2018-08-15] MEDS: ASPIRIN 81MG TABLET PO SCH (09:52)
[2018-08-15] MEDS: SEVELAMER CARBONATE 800 MG TABLET PO SCH ×3 (09:52→18:30)
[2018-08-15 12:00] VITALS: BP 118/79
[2018-08-15] MEDS ORDERED: MAGNESIUM/ALUMINUM HYDROXIDE/SIMETHICONE 30ML UDC PO PRN (14:45)
[2018-08-15] MEDS ORDERED: DIPHENOXYLATE/ATROPINE 2.5/0.025MG TABLET PO PRN (14:45)
[2018-08-15 16:00] VITALS: BP 141/94
[2018-08-15 20:00] VITALS: BP 158/96
[2018-08-16] MEDS: NITROGLYCERIN OINT 1GM/INCH UDPKT TD SCH (05:10)
[2018-08-16 08:00] VITALS: BP 134/78
[2018-08-16] MEDS: NIFEDIPINE XL 30MG TAB PO SCH (08:51)
[2018-08-16] MEDS: ASPIRIN 81MG TABLET PO SCH (08:51)
[2018-08-16] MEDS: METOPROLOL TARTRATE 50MG TABLET PO SCH ×2 (08:51→20:10)
[2018-08-16] MEDS: SEVELAMER CARBONATE 800 MG TABLET PO SCH ×3 (08:51→18:10)
[2018-08-16 12:00] VITALS: BP 159/99
[2018-08-16 20:00] VITALS: BP 180/105
[2018-08-17 08:00] VITALS: BP_SYST 147; BP_SYST 148; BP_DIAS 95; BP_DIAS 97
[2018-08-17] MEDS: SEVELAMER CARBONATE 800 MG TABLET PO SCH ×3 (08:42→18:05)
[2018-08-17] MEDS: NIFEDIPINE XL 30MG TAB PO SCH ×2 (08:43→20:12)
[2018-08-17] MEDS: METOPROLOL TARTRATE 50MG TABLET PO SCH ×2 (08:43→20:11)
[2018-08-17] MEDS: ASPIRIN 81MG TABLET PO SCH (08:43)
[2018-08-17 11:22] LABS: EOSINOPHILS % 2.1 % (0.0-5.0); HEMATOCRIT. 33.9 % (42.0-52.0); HEMOGLOBIN. 11.1 g/dL (14.0-18.0); LYMPHOCYTES % 15.7 % (20.0-50.0); MEAN CORPUSCULAR HEMOGLOBIN 31.8 pg (28.0-32.0); MEAN PLATELET VOLUME 8.1 fl (7.4-10.4); MONOCYTES % 11.3 % (2.0-8.0); NEUTROPHILS % 68.9 % (40.0-76.0); PLATELET 206 x1000/uL (130-400); RED BLOOD CELL COUNT 3.49 mill/uL (4.7-6.1)
[2018-08-17 12:00] VITALS: BP 148/97
[2018-08-17 16:00] VITALS: BP 154/86
[2018-08-17 20:00] VITALS: BP 160/86
[2018-08-18] VITALS: BP 153/97
[2018-08-18 04:00] VITALS: BP 130/80
[2018-08-18 08:10] VITALS: BP 139/85
[2018-08-18] MEDS: METOPROLOL TARTRATE 50MG TABLET PO SCH (09:00)
[2018-08-18] MEDS: NIFEDIPINE XL 30MG TAB PO SCH (09:00)
[2018-08-18] MEDS: ASPIRIN 81MG TABLET PO SCH (09:01)
[2018-08-18] MEDS: SEVELAMER CARBONATE 800 MG TABLET PO SCH ×2 (09:01→13:26)
[2018-08-18 12:00] VITALS: BP 149/90
[2018-08-18 13:20] LABS: HEMATOCRIT 33.4 % (42.0-52.0); HEMOGLOBIN 11.1 g/dL (14.0-18.0); MEAN CORPUSCULAR HEMOGLOBIN 32.2 pg (28.0-32.0); MEAN CORPUSCULAR VOLUME 96.8 fL (80.0-94.0); PLATELET 204 x1000/uL (130-400); RED BLOOD CELL COUNT 3.45 mill/uL (4.7-6.1); RED CELL DISTRIBUTION WIDTH 17.2 % (11.6-14.6)
[2018-08-18] MEDS ORDERED: HEPARIN SODIUM 1,000 UNIT/1ML VIAL IV SCH (13:45)
== END 2018-08-18 14:45 | disposition home or self-care (01) | DRG 194 ==
LOC: ER 00:51 → 7WST 05:00 → CANRESERV 07:03 → ENRESERV 07:03 → 7WST 09:43
PROVIDERS: ADMIT Internal Medicine; ATTEND Internal Medicine
PROC: 5A1D70Z Performance of Urinary Filtration, Intermittent, Less than 6 Hours Per Day (ICD-10-PCS; principal; 2018-08-15)
PROC: 5A1D70Z Performance of Urinary Filtration, Intermittent, Less than 6 Hours Per Day (ICD-10-PCS; 2018-08-17)
PROC: 5A1D70Z Performance of Urinary Filtration, Intermittent, Less than 6 Hours Per Day (ICD-10-PCS; 2018-08-18)
DX: I13.2 Hypertensive heart and chronic kidney disease with heart failure and with stage 5 chronic kidney disease, or end stage renal disease (principal); I27.20 Pulmonary hypertension, unspecified; E44.0 Moderate protein-calorie malnutrition; N18.6 End stage renal disease; I43 Cardiomyopathy in diseases classified elsewhere; I36.1 Nonrheumatic tricuspid (valve) insufficiency; E87.5 Hyperkalemia; I50.43 Acute on chronic combined systolic (congestive) and diastolic (congestive) heart failure; D63.8 Anemia in other chronic diseases classified elsewhere; F12.90 Cannabis use, unspecified, uncomplicated; F41.9 Anxiety disorder, unspecified; G89.4 Chronic pain syndrome; J44.9 Chronic obstructive pulmonary disease, unspecified; M54.9 Dorsalgia, unspecified; R00.2 Palpitations; Z91.19 Patient's noncompliance with other medical treatment and regimen; Z99.2 Dependence on renal dialysis; Z88.6 Allergy status to analgesic agent; Z79.899 Other long term (current) drug therapy; Z68.25 Body mass index [BMI] 25.0-25.9, adult; M94.0 Chondrocostal junction syndrome [Tietze]
CPT/HCPCS: 36415; 71045; 80048; 80061; 82550; 82553; 83880; 84484; 85027; 93005; 99285; J1644; J7030

== ENCOUNTER 2018-09-18 08:52 | Emergency (ER) | payer MEDICAID ==
[~2018-09-18] VITALS: Ht 180.3 cm; Wt 75.0 kg
[~2018-09-18 08:52] MED LIST changes: -DOXA2TAB PO; -NIFE60TA64 PO
[2018-09-18 08:57] VITALS: BP 166/88
== END 2018-09-18 11:34 | disposition left against medical advice (07) ==
LOC: ER 08:52
DX: R68.89 Other general symptoms and signs (principal); Z76.0 Encounter for issue of repeat prescription; Z53.21 Procedure and treatment not carried out due to patient leaving prior to being seen by health care provider

== ENCOUNTER 2018-09-18 12:55 | Emergency (ER) | payer MEDICAID ==
[2018-09-18 12:58] VITALS: BP 182/106
== END 2018-09-18 14:30 | disposition home or self-care (01) ==
LOC: ER 12:55
DX: I12.0 Hypertensive chronic kidney disease with stage 5 chronic kidney disease or end stage renal disease (principal); N18.6 End stage renal disease; F12.10 Cannabis abuse, uncomplicated; Z99.2 Dependence on renal dialysis; Z88.5 Allergy status to narcotic agent; Z79.899 Other long term (current) drug therapy
CPT/HCPCS: 99283

== ENCOUNTER 2018-10-06 09:57 | Inpatient (IN) | payer MEDICAID ==
[~2018-10-06] VITALS: Ht 182.9 cm; Wt 83.5 kg
[2018-10-06 12:21] LABS: BASOPHILS % 2.3 % (0.0-2.0); EOSINOPHILS % 2.8 % (0.0-5.0); HEMATOCRIT. 35.8 % (42.0-52.0); HEMOGLOBIN. 11.8 g/dL (14.0-18.0); LYMPHOCYTES % 16.1 % (20.0-50.0); MEAN CORPUSCULAR HEMOGLOBIN 32.1 pg (28.0-32.0); MEAN CORPUSCULAR VOLUME 97.5 fL (80.0-94.0); MEAN PLATELET VOLUME 7.9 fl (7.4-10.4); MONOCYTES % 8.7 % (2.0-8.0); NEUTROPHILS % 70.1 % (40.0-76.0); PLATELET 231 x1000/uL (130-400); RED BLOOD CELL COUNT 3.67 mill/uL (4.7-6.1); RED CELL DISTRIBUTION WIDTH 17.7 % (11.6-14.6)
[2018-10-06 12:25] LABS: CHLORIDE 101 mEq/L (98-107)
[2018-10-06 12:36] LABS: INR 1.1; PARTIAL THROMBOPLASTIN TIME 29.6 sec (23.4-31.0); PROTHROMBIN TIME 11.1 sec (9.1-11.1)
[2018-10-06] MEDS ORDERED: ONDANSETRON HCL 4MG/2ML INJ IV PRN (13:15)
[2018-10-06] MEDS ORDERED: ACETAMINOPHEN 325MG TABLET PO PRN (13:15)
[2018-10-06] MEDS ORDERED: ASPIRIN 81MG TABLET PO ONE (13:15)
[2018-10-06] MEDS ORDERED: CLONIDINE 0.1MG TABLET PO PRN (13:15)
[2018-10-06 17:00] VITALS: BP 180/91
[2018-10-06 20:25] VITALS: BP 193/103
[2018-10-06] MEDS: METOPROLOL TARTRATE 50MG TABLET PO SCH (21:00)
[2018-10-06] MEDS: AMLODIPINE 5MG TABLET PO SCH (21:00)
[2018-10-07 04:07] VITALS: BP 144/78
[2018-10-07 05:00] VITALS: BP 144/77
[2018-10-07 08:00] VITALS: BP 149/78
[2018-10-07] MEDS: METOPROLOL TARTRATE 50MG TABLET PO SCH ×2 (08:36→21:00)
[2018-10-07] MEDS: LOSARTAN POTASSIUM 100 MG TABLET PO SCH (08:36)
[2018-10-07] MEDS: AMLODIPINE 5MG TABLET PO SCH ×2 (08:36→21:00)
[2018-10-07 12:00] VITALS: BP 161/85
[2018-10-07 16:00] VITALS: BP 150/91
[2018-10-08 06:59] LABS: BASOPHILS % 2.1 % (0.0-2.0); EOSINOPHILS % 3.8 % (0.0-5.0); HEMATOCRIT. 31.1 % (42.0-52.0); HEMOGLOBIN. 10.4 g/dL (14.0-18.0); LYMPHOCYTES % 16.8 % (20.0-50.0); MEAN CORPUSCULAR HEMOGLOBIN 32.4 pg (28.0-32.0); MEAN CORPUSCULAR VOLUME 96.8 fL (80.0-94.0); MONOCYTES % 11.2 % (2.0-8.0); NEUTROPHILS % 66.1 % (40.0-76.0); PLATELET 197 x1000/uL (130-400); RED BLOOD CELL COUNT 3.21 mill/uL (4.7-6.1); RED CELL DISTRIBUTION WIDTH 17.9 % (11.6-14.6)
[2018-10-08 08:00] VITALS: BP 166/102
[2018-10-08] MEDS: LOSARTAN POTASSIUM 100 MG TABLET PO SCH (09:00)
[2018-10-08 12:00] VITALS: BP 160/98
[2018-10-08 16:00] VITALS: BP 170/92
[2018-10-08] MEDS: METOPROLOL TARTRATE 50MG TABLET PO SCH (16:41)
[2018-10-08] MEDS: AMLODIPINE 5MG TABLET PO SCH (16:41)
[2018-10-08 20:18] VITALS: BP 138/59
[2018-10-09] VITALS: BP 199/81
[2018-10-09 04:00] VITALS: BP 134/82
[2018-10-09 08:00] VITALS: BP 100/92
[2018-10-09] MEDS: AMLODIPINE 5MG TABLET PO SCH ×3 (08:44→20:33)
[2018-10-09] MEDS: METOPROLOL TARTRATE 50MG TABLET PO SCH ×3 (08:44→20:33)
[2018-10-09] MEDS: LOSARTAN POTASSIUM 100 MG TABLET PO SCH ×2 (08:45→17:31)
[2018-10-09] MEDS ORDERED: BISMUTH SUBSALICYLATE 262 MG/15 ML-120ML BOTTLE PO NR (11:00)
[2018-10-09 12:00] VITALS: BP 144/67
[2018-10-09 20:00] VITALS: BP 168/97
[2018-10-09] MEDS: FAMOTIDINE 20MG TABLET PO SCH (20:31)
[2018-10-10 00:04] VITALS: BP 139/76
[2018-10-10 08:00] VITALS: BP 155/94
[2018-10-10] MEDS: AMLODIPINE 5MG TABLET PO SCH ×2 (09:00→20:45)
[2018-10-10] MEDS: METOPROLOL TARTRATE 50MG TABLET PO SCH ×2 (09:00→20:44)
[2018-10-10] MEDS: LOSARTAN POTASSIUM 100 MG TABLET PO SCH (13:26)
[2018-10-10] MEDS: FAMOTIDINE 20MG TABLET PO SCH (13:56)
[2018-10-10] MEDS: HYDROCODONE/ACETAMINOPHEN 5/325MG TABLET PO PRN (13:57)
[2018-10-10 16:00] VITALS: BP 170/97
[2018-10-10 17:22] LABS: BASOPHILS % 3.5 % (0.0-2.0); EOSINOPHILS % 2.8 % (0.0-5.0); HEMATOCRIT. 38.9 % (42.0-52.0); HEMOGLOBIN. 12.8 g/dL (14.0-18.0); LYMPHOCYTES % 27.8 % (20.0-50.0); MEAN CORPUSCULAR HEMOGLOBIN 31.8 pg (28.0-32.0); MEAN CORPUSCULAR VOLUME 96.8 fL (80.0-94.0); MEAN PLATELET VOLUME 8.6 fl (7.4-10.4); MONOCYTES % 8.3 % (2.0-8.0); NEUTROPHILS % 57.6 % (40.0-76.0); PLATELET 221 x1000/uL (130-400); RED BLOOD CELL COUNT 4.01 mill/uL (4.7-6.1); RED CELL DISTRIBUTION WIDTH 17.6 % (11.6-14.6)
[2018-10-10 20:00] VITALS: BP 158/99
[2018-10-11 08:13] VITALS: BP 174/93
[2018-10-11] MEDS: AMLODIPINE 5MG TABLET PO SCH ×2 (09:07→20:35)
[2018-10-11] MEDS: LOSARTAN POTASSIUM 100 MG TABLET PO SCH (09:07)
[2018-10-11] MEDS: METOPROLOL TARTRATE 50MG TABLET PO SCH ×2 (09:07→20:36)
[2018-10-11] MEDS: FAMOTIDINE 20MG TABLET PO SCH (09:07)
[2018-10-11 12:25] VITALS: BP 134/81
[2018-10-11 20:36] VITALS: BP 123/78
[2018-10-11 20:38] VITALS: BP 140/90
[2018-10-12] VITALS: BP 134/82
[2018-10-12 04:00] VITALS: BP 153/91
[2018-10-12 08:00] VITALS: BP 106/55
[2018-10-12] MEDS: FAMOTIDINE 20MG TABLET PO SCH (09:00)
[2018-10-12] MEDS: METOPROLOL TARTRATE 50MG TABLET PO SCH ×2 (09:00→21:00)
[2018-10-12] MEDS: AMLODIPINE 5MG TABLET PO SCH ×2 (09:00→21:00)
[2018-10-12] MEDS: LOSARTAN POTASSIUM 100 MG TABLET PO SCH (09:49)
[2018-10-12 12:00] VITALS: BP 149/91
[2018-10-12 16:00] VITALS: BP 163/95
[2018-10-13 00:10] VITALS: BP 143/88
[2018-10-13 04:00] VITALS: BP 135/81
[2018-10-13] MEDS ORDERED: XAR15 MT (07:09)
[2018-10-13] MEDS ORDERED: ASPI-1159 MT (07:25)
[2018-10-13] MEDS ORDERED: SEVE800T8 MT (07:25)
[2018-10-13] MEDS: FAMOTIDINE 20MG TABLET PO SCH ×2 (09:00→16:28)
[2018-10-13] MEDS: AMLODIPINE 5MG TABLET PO SCH (09:00)
[2018-10-13] MEDS: METOPROLOL TARTRATE 50MG TABLET PO SCH (09:00)
[2018-10-13] MEDS: LOSARTAN POTASSIUM 100 MG TABLET PO SCH (09:42)
[2018-10-13] MEDS: HYDROCODONE/ACETAMINOPHEN 5/325MG TABLET PO PRN (12:29)
[2018-10-13] MEDS ORDERED: AMLO5TAB88 PO (15:12)
[2018-10-13] MEDS ORDERED: LOSA100T3 PO (15:12)
[2018-10-13] MEDS ORDERED: METO-539 PO (15:12)
[2018-10-13] MEDS ORDERED: FAMO20TA8 PO (15:12)
[2018-10-13 19:37] VITALS: BP 146/84
== END 2018-10-13 20:05 | disposition home or self-care (01) | DRG 470 ==
LOC: ER 09:57 → 6WST 13:05 → ENRESERV 15:51
PROVIDERS: ADMIT Internal Medicine; ATTEND Internal Medicine
PROC: 5A1D70Z Performance of Urinary Filtration, Intermittent, Less than 6 Hours Per Day (ICD-10-PCS; 2018-10-06)
PROC: 5A1D70Z Performance of Urinary Filtration, Intermittent, Less than 6 Hours Per Day (ICD-10-PCS; 2018-10-07)
PROC: 5A1D70Z Performance of Urinary Filtration, Intermittent, Less than 6 Hours Per Day (ICD-10-PCS; 2018-10-09)
PROC: 5A1D70Z Performance of Urinary Filtration, Intermittent, Less than 6 Hours Per Day (ICD-10-PCS; principal; 2018-10-12)
DX: I13.11 Hypertensive heart and chronic kidney disease without heart failure, with stage 5 chronic kidney disease, or end stage renal disease (principal); I27.20 Pulmonary hypertension, unspecified; N18.6 End stage renal disease; F41.9 Anxiety disorder, unspecified; G89.4 Chronic pain syndrome; D63.8 Anemia in other chronic diseases classified elsewhere; Z99.2 Dependence on renal dialysis; Z88.5 Allergy status to narcotic agent; Z79.82 Long term (current) use of aspirin; Z79.899 Other long term (current) drug therapy
CPT/HCPCS: 36415; 71045; 80048; 84484; 93005; 93970; 99285; J2405

== ENCOUNTER 2018-10-24 17:53 | Inpatient (IN) | payer MEDICAID ==
[2018-10-24] VITALS: BP 171/88
[~2018-10-24] VITALS: Ht 180.3 cm; Wt 81.6 kg
[~2018-10-24 17:53] MED LIST changes: +AMLO5TAB88 PO; -ASPI-1158 PO; +ASPI-1159 MT; +FAMO20TA8 PO; +LOSA100T3 PO; +METO-539 PO; +SEVE800T8 MT; -SEVE800T8 PO
[2018-10-24 20:23] LABS: HEMATOCRIT. 34.1 % (42.0-52.0); HEMOGLOBIN. 11.2 g/dL (14.0-18.0); MEAN CORPUSCULAR HEMOGLOBIN 31.3 pg (28.0-32.0); MEAN CORPUSCULAR VOLUME 95.2 fL (80.0-94.0); MEAN PLATELET VOLUME 7.7 fl (7.4-10.4); PLATELET 211 x1000/uL (130-400); RED BLOOD CELL COUNT 3.59 mill/uL (4.7-6.1); RED CELL DISTRIBUTION WIDTH 17.8 % (11.6-14.6)
[2018-10-24 20:24] LABS: CHLORIDE 102 mEq/L (98-107); INR 1.2; PROTHROMBIN TIME 11.7 sec (9.1-11.1)
[2018-10-24 21:07] LABS: PLATELET ESTIMATE NORMAL
[2018-10-24] MEDS ORDERED: ACETAMINOPHEN 325MG TABLET PO PRN (23:15)
[2018-10-24] MEDS ORDERED: IPRATROPIUM/ALBUTEROL 0.5-3(2.5)MG/3ML NEB INH PRN (23:15)
[2018-10-24] MEDS ORDERED: DOCUSATE SODIUM 100MG CAPSULE PO PRN (23:15)
[2018-10-24] MEDS ORDERED: ONDANSETRON HCL 4MG/2ML INJ IV PRN (23:15)
[2018-10-24] MEDS ORDERED: CLONIDINE 0.1MG TABLET PO PRN (23:15)
[2018-10-25] VITALS: BP 171/88
[2018-10-25] MEDS: HYDROCODONE/ACETAMINOPHEN 5/325MG TABLET PO PRN ×3 (00:22→19:51)
[2018-10-25] MEDS ORDERED: CITALOPRAM HYDROBROMIDE 10MG TABLET PO SCH (13:15)
[2018-10-25 16:00] VITALS: BP 130/70
[2018-10-25 20:00] VITALS: BP 148/79
[2018-10-25] MEDS ORDERED: CLONIDINE 0.2MG TABLET PO SCH (21:00)
[2018-10-25] MEDS ORDERED: RISPERIDONE 1MG TABLET PO SCH (21:00)
[2018-10-26] VITALS: BP 135/81
[2018-10-26] MEDS: HYDROCODONE/ACETAMINOPHEN 5/325MG TABLET PO PRN ×2 (00:12→07:02)
[2018-10-26 02:00] VITALS: BP 135/81
[2018-10-26 04:00] VITALS: BP 128/83
[2018-10-26 06:00] VITALS: BP 128/83
[2018-10-26 07:02] VITALS: BP 128/83
== END 2018-10-26 08:10 | disposition left against medical advice (07) | DRG 194 ==
LOC: ER 17:53 → EDBEDREQ 18:48 → 8WST 21:16 → EDBEDREQ 21:19 → EDBEDREQTM 21:19 → ENRESERV 22:22
PROVIDERS: ADMIT Internal Medicine; ATTEND Internal Medicine
PROC: 5A1D70Z Performance of Urinary Filtration, Intermittent, Less than 6 Hours Per Day (ICD-10-PCS; principal; 2018-10-24)
PROC: 5A1D70Z Performance of Urinary Filtration, Intermittent, Less than 6 Hours Per Day (ICD-10-PCS; 2018-10-25)
DX: I13.2 Hypertensive heart and chronic kidney disease with heart failure and with stage 5 chronic kidney disease, or end stage renal disease (principal); E43 Unspecified severe protein-calorie malnutrition; I27.20 Pulmonary hypertension, unspecified; N18.6 End stage renal disease; F41.9 Anxiety disorder, unspecified; Z53.21 Procedure and treatment not carried out due to patient leaving prior to being seen by health care provider; G89.4 Chronic pain syndrome; M54.9 Dorsalgia, unspecified; D63.8 Anemia in other chronic diseases classified elsewhere; I50.33 Acute on chronic diastolic (congestive) heart failure; Z91.15 Patient's noncompliance with renal dialysis; Z99.2 Dependence on renal dialysis; Z88.5 Allergy status to narcotic agent; Z79.899 Other long term (current) drug therapy; Z68.25 Body mass index [BMI] 25.0-25.9, adult; Z87.81 Personal history of (healed) traumatic fracture
CPT/HCPCS: 36415; 71045; 93005; 99285

== ENCOUNTER 2018-10-27 14:22 | Inpatient (IN) | payer MEDICAID ==
[~2018-10-27] VITALS: Ht 180.3 cm; Wt 84.0 kg
[2018-10-27 16:24] LABS: CHLORIDE 101 mEq/L (98-107)
[2018-10-27 16:25] LABS: BASOPHILS % 1.2 % (0.0-2.0); EOSINOPHILS % 4.7 % (0.0-5.0); HEMATOCRIT. 35.5 % (42.0-52.0); HEMOGLOBIN. 11.7 g/dL (14.0-18.0); INR 1.1; LYMPHOCYTES % 7.5 % (20.0-50.0); MEAN CORPUSCULAR HEMOGLOBIN 31.6 pg (28.0-32.0); MONOCYTES % 9.1 % (2.0-8.0); NEUTROPHILS % 77.5 % (40.0-76.0); PLATELET 238 x1000/uL (130-400); PROTHROMBIN TIME 11.4 sec (9.1-11.1); RED CELL DISTRIBUTION WIDTH 17.7 % (11.6-14.6)
[2018-10-27] MEDS ORDERED: SODIUM POLYSTYRENE SULFONATE 15 G/60 ML BOT PO ONE (17:15)
[2018-10-27] MEDS ORDERED: KETOROLAC 30MG/ML VIAL IV ONE (17:15)
[2018-10-27] MEDS ORDERED: ACETAMINOPHEN 325MG TABLET PO PRN (17:45)
[2018-10-27] MEDS ORDERED: ONDANSETRON HCL 4MG/2ML INJ IV PRN (17:45)
[2018-10-27] MEDS ORDERED: CLONIDINE 0.1MG TABLET PO PRN (17:45)
[2018-10-27] MEDS: FAMOTIDINE 20MG TABLET PO SCH (21:45)
[2018-10-27] MEDS: AMLODIPINE 5MG TABLET PO SCH (21:45)
[2018-10-28 08:00] VITALS: BP_SYST 139; BP_SYST 145; BP_DIAS 79; BP_DIAS 87
[2018-10-28] MEDS: SEVELAMER CARBONATE 800 MG TABLET PO SCH ×3 (08:10→18:10)
[2018-10-28] MEDS: CITALOPRAM HYDROBROMIDE 10MG TABLET PO SCH (08:49)
[2018-10-28] MEDS: AMLODIPINE 5MG TABLET PO SCH ×2 (08:49→21:00)
[2018-10-28] MEDS: FOLIC ACID/VITAMIN B COMP W-C TABLET PO SCH (08:49)
[2018-10-28 12:00] VITALS: BP 152/96
[2018-10-28 16:00] VITALS: BP 180/105
[2018-10-28] MEDS: FAMOTIDINE 20MG TABLET PO SCH (21:00)
[2018-10-28] MEDS ORDERED: RISPERIDONE 1MG TABLET PO SCH (21:00)
[2018-10-29 08:00] VITALS: BP 128/92
[2018-10-29] MEDS: SEVELAMER CARBONATE 800 MG TABLET PO SCH (09:02)
[2018-10-29] MEDS: AMLODIPINE 5MG TABLET PO SCH (09:04)
[2018-10-29] MEDS: CITALOPRAM HYDROBROMIDE 10MG TABLET PO SCH (09:04)
[2018-10-29] MEDS: FOLIC ACID/VITAMIN B COMP W-C TABLET PO SCH (09:04)
[2018-10-29 11:45] VITALS: BP 128/92
[2018-10-29 12:00] VITALS: BP 136/83
== END 2018-10-29 14:33 | disposition home or self-care (01) | DRG 194 ==
LOC: ER 14:22 → 7WST 17:18 → ENRESERV 19:09
PROVIDERS: ADMIT Internal Medicine; ATTEND Internal Medicine
PROC: 5A1D70Z Performance of Urinary Filtration, Intermittent, Less than 6 Hours Per Day (ICD-10-PCS; principal; 2018-10-28)
PROC: 5A1D70Z Performance of Urinary Filtration, Intermittent, Less than 6 Hours Per Day (ICD-10-PCS; 2018-10-29)
DX: I13.2 Hypertensive heart and chronic kidney disease with heart failure and with stage 5 chronic kidney disease, or end stage renal disease (principal); I27.20 Pulmonary hypertension, unspecified; N18.6 End stage renal disease; E44.0 Moderate protein-calorie malnutrition; E87.5 Hyperkalemia; I50.33 Acute on chronic diastolic (congestive) heart failure; D63.8 Anemia in other chronic diseases classified elsewhere; M54.9 Dorsalgia, unspecified; F17.210 Nicotine dependence, cigarettes, uncomplicated; F41.9 Anxiety disorder, unspecified; G89.4 Chronic pain syndrome; Z68.25 Body mass index [BMI] 25.0-25.9, adult; Z88.6 Allergy status to analgesic agent; Z99.2 Dependence on renal dialysis; Z91.81 History of falling; Z87.81 Personal history of (healed) traumatic fracture; Z71.6 Tobacco abuse counseling; Z79.899 Other long term (current) drug therapy
CPT/HCPCS: 36415; 71045; 93005; 96374; 99285; J1885

== ENCOUNTER 2018-10-31 17:49 | Inpatient (IN) | payer MEDICAID ==
[~2018-10-31] VITALS: Ht 180.3 cm; Wt 81.6 kg
[2018-11-01] MEDS ORDERED: FENTANYL CITRATE/PF 50MCG/ML 2ML VIAL IV ONE (02:30)
[2018-11-01 03:05] LABS: BASOPHILS % 0.5 % (0.0-2.0); EOSINOPHILS % 4.6 % (0.0-5.0); HEMATOCRIT. 36.9 % (42.0-52.0); HEMOGLOBIN. 12.3 g/dL (14.0-18.0); LYMPHOCYTES % 14.8 % (20.0-50.0); MEAN CORPUSCULAR HEMOGLOBIN 31.5 pg (28.0-32.0); MEAN CORPUSCULAR VOLUME 94.9 fL (80.0-94.0); MEAN PLATELET VOLUME 7.8 fl (7.4-10.4); MONOCYTES % 9.3 % (2.0-8.0); NEUTROPHILS % 70.8 % (40.0-76.0); PLATELET 355 x1000/uL (130-400); RED BLOOD CELL COUNT 3.89 mill/uL (4.7-6.1); RED CELL DISTRIBUTION WIDTH 17.3 % (11.6-14.6)
[2018-11-01 03:11] LABS: CHLORIDE 99 mEq/L (98-107)
[2018-11-01] MEDS ORDERED: ACETAMINOPHEN 325MG TABLET PO PRN ×2 (05:45→11:00)
[2018-11-01 08:00] VITALS: BP 138/86
[2018-11-01 09:58] VITALS: BP 138/86
[2018-11-01] MEDS ORDERED: LORAZEPAM 0.5MG TABLET PO PRN (11:00)
[2018-11-01] MEDS ORDERED: MAGNESIUM/ALUMINUM HYDROXIDE/SIMETHICONE 30ML UDC PO PRN (11:00)
[2018-11-01] MEDS ORDERED: CLONIDINE 0.1MG TABLET PO PRN (11:00)
[2018-11-01] MEDS ORDERED: GUAIFENESIN 200MG/10ML SUGAR FREE UDC PO PRN (11:00)
[2018-11-01] MEDS ORDERED: IPRATROPIUM/ALBUTEROL 0.5-3(2.5)MG/3ML NEB INH PRN (11:00)
[2018-11-01] MEDS ORDERED: ONDANSETRON HCL 4MG/2ML INJ IV PRN (11:00)
[2018-11-01] MEDS ORDERED: DIPHENHYDRAMINE 50MG/ML VIAL IV PRN (11:00)
[2018-11-01 11:30] VITALS: BP 138/86
[2018-11-01] MEDS: SODIUM CHLORIDE 0.9% INJ 3ML FLUSH IVF SCH ×2 (13:10→22:00)
[2018-11-02] MEDS: SODIUM CHLORIDE 0.9% INJ 3ML FLUSH IVF SCH ×2 (02:19→14:00)
[2018-11-02 04:00] VITALS: BP 127/80
[2018-11-02 08:00] VITALS: BP 140/75
[2018-11-02 08:35] VITALS: BP_SYST 140
[2018-11-02 12:06] VITALS: BP 155/94
[2018-11-02 20:56] VITALS: BP 158/72
== END 2018-11-02 21:35 | disposition home or self-care (01) | DRG 244 ==
LOC: ER 17:49 → 6EST 11-01 07:11 → EDBEDREQTM 11-01 07:17 → EDBEDREQ 11-01 07:17 → ENRESERV 11-01 08:54
PROVIDERS: ADMIT Internal Medicine; ATTEND Internal Medicine
DX: K57.30 Diverticulosis of large intestine without perforation or abscess without bleeding (principal); I13.2 Hypertensive heart and chronic kidney disease with heart failure and with stage 5 chronic kidney disease, or end stage renal disease; I27.20 Pulmonary hypertension, unspecified; N18.6 End stage renal disease; E88.09 Other disorders of plasma-protein metabolism, not elsewhere classified; R18.8 Other ascites; E44.1 Mild protein-calorie malnutrition; N28.1 Cyst of kidney, acquired; K64.9 Unspecified hemorrhoids; K57.92 Diverticulitis of intestine, part unspecified, without perforation or abscess without bleeding; R07.89 Other chest pain; I50.32 Chronic diastolic (congestive) heart failure; D64.9 Anemia, unspecified; F41.9 Anxiety disorder, unspecified; G89.4 Chronic pain syndrome; Z53.20 Procedure and treatment not carried out because of patient's decision for unspecified reasons; R16.0 Hepatomegaly, not elsewhere classified; M54.9 Dorsalgia, unspecified; Z88.5 Allergy status to narcotic agent; Z99.2 Dependence on renal dialysis; Z83.3 Family history of diabetes mellitus; Z84.1 Family history of disorders of kidney and ureter
CPT/HCPCS: 36415; 73610; 74176; 82270; 87015; 87045; 87427; 87449; 87493; 89055; 93970; 99285; J3010

== ENCOUNTER 2018-11-07 12:16 | Inpatient (IN) | payer MEDICAID ==
[~2018-11-07] VITALS: Ht 188 cm; Wt 144.0 kg
[2018-11-07 13:32] LABS: BASOPHILS % 0.8 % (0.0-2.0); EOSINOPHILS % 3.3 % (0.0-5.0); HEMATOCRIT. 33.6 % (42.0-52.0); HEMOGLOBIN. 10.9 g/dL (14.0-18.0); LYMPHOCYTES % 9.4 % (20.0-50.0); MEAN CORPUSCULAR HEMOGLOBIN 31.2 pg (28.0-32.0); MEAN CORPUSCULAR VOLUME 96.4 fL (80.0-94.0); MONOCYTES % 11.6 % (2.0-8.0); NEUTROPHILS % 74.9 % (40.0-76.0); PLATELET 362 x1000/uL (130-400); RED BLOOD CELL COUNT 3.49 mill/uL (4.7-6.1); RED CELL DISTRIBUTION WIDTH 17.2 % (11.6-14.6)
[2018-11-07 13:40] LABS: INR 1.2; PROTHROMBIN TIME 11.8 sec (9.1-11.1)
[2018-11-07 13:41] LABS: CHLORIDE 101 mEq/L (98-107)
[2018-11-07] MEDS ORDERED: HYDROMORPHONE HCL/PF 2MG/ML CPJ IV PRN (16:00)
[2018-11-07] MEDS ORDERED: ONDANSETRON HCL 4MG/2ML INJ IV PRN (16:00)
[2018-11-07] MEDS ORDERED: ACETAMINOPHEN 325MG TABLET PO PRN (16:00)
[2018-11-07 17:00] VITALS: BP 146/91
[2018-11-07 17:44] VITALS: BP 149/91
[2018-11-07 20:00] VITALS: BP 142/72
[2018-11-08 06:31] LABS: HEMATOCRIT. 31.3 % (42.0-52.0); HEMOGLOBIN. 10.3 g/dL (14.0-18.0); MEAN CORPUSCULAR HEMOGLOBIN 31.3 pg (28.0-32.0); MEAN CORPUSCULAR VOLUME 95.6 fL (80.0-94.0); MEAN PLATELET VOLUME 8.2 fl (7.4-10.4); PLATELET 307 x1000/uL (130-400); RED BLOOD CELL COUNT 3.28 mill/uL (4.7-6.1); RED CELL DISTRIBUTION WIDTH 16.8 % (11.6-14.6)
[2018-11-08] MEDS ORDERED: DIPHENHYDRAMINE 12.5MG/5ML UDC PO SCH (18:00)
[2018-11-08] MEDS ORDERED: CHOLESTYRAMINE/SUCROSE 4G POWDER PACKET PO SCH (18:10)
[2018-11-08] MEDS: VISCOUS LIDOCAINE 2% 15 ML UDC MM SCH (18:56)
[2018-11-08] MEDS: MAGNESIUM/ALUMINUM HYDROXIDE/SIMETHICONE 30ML UDC PO SCH (18:56)
[2018-11-08 20:37] LABS: PLATELET ESTIMATE NORMAL
[2018-11-08] MEDS: OMEPRAZOLE 20MG CAPSULE EXTENDED RELEASE PO SCH (21:00)
[2018-11-08 23:32] VITALS: BP 120/78
[2018-11-09] MEDS: OMEPRAZOLE 20MG CAPSULE EXTENDED RELEASE PO SCH (08:36)
[2018-11-09] MEDS: MAGNESIUM/ALUMINUM HYDROXIDE/SIMETHICONE 30ML UDC PO SCH ×2 (08:37→13:25)
[2018-11-09] MEDS: DIPHENHYDRAMINE 12.5MG/5ML UDC PO SCH ×2 (08:37→13:25)
[2018-11-09] MEDS: VISCOUS LIDOCAINE 2% 15 ML UDC MM SCH ×2 (08:37→13:25)
[2018-11-12 04:18] LABS: OVA & PARASITE EXAM Final report (.)
== END 2018-11-09 16:22 | disposition home or self-care (01) | DRG 249 ==
LOC: ER 12:35 → 7WST 13:57 → ENRESERV 14:40
PROVIDERS: ADMIT Internal Medicine; ATTEND Internal Medicine
PROC: 5A1D70Z Performance of Urinary Filtration, Intermittent, Less than 6 Hours Per Day (ICD-10-PCS; principal; 2018-11-08)
DX: K52.9 Noninfective gastroenteritis and colitis, unspecified (principal); I27.20 Pulmonary hypertension, unspecified; R18.8 Other ascites; I13.11 Hypertensive heart and chronic kidney disease without heart failure, with stage 5 chronic kidney disease, or end stage renal disease; N18.6 End stage renal disease; E44.0 Moderate protein-calorie malnutrition; G89.4 Chronic pain syndrome; R25.2 Cramp and spasm; K57.30 Diverticulosis of large intestine without perforation or abscess without bleeding; F41.9 Anxiety disorder, unspecified; D63.8 Anemia in other chronic diseases classified elsewhere; Z53.29 Procedure and treatment not carried out because of patient's decision for other reasons; Z99.2 Dependence on renal dialysis; Z88.5 Allergy status to narcotic agent; Z91.19 Patient's noncompliance with other medical treatment and regimen; Z91.81 History of falling; Z68.41 Body mass index [BMI] 40.0-44.9, adult; Z79.899 Other long term (current) drug therapy; Z79.82 Long term (current) use of aspirin
CPT/HCPCS: 36415; 71045; 80048; 82705; 87177; 87209; 99285; Q0163

== ENCOUNTER 2018-11-20 00:56 | Inpatient (IN) | payer MEDICAID ==
[~2018-11-20] VITALS: Ht 185.4 cm; Wt 83.9 kg
[2018-11-20 05:44] LABS: BASOPHILS % 1.4 % (0.0-2.0); EOSINOPHILS % 3.1 % (0.0-5.0); HEMATOCRIT. 31.4 % (42.0-52.0); HEMOGLOBIN. 10.2 g/dL (14.0-18.0); LYMPHOCYTES % 11.6 % (20.0-50.0); MEAN CORPUSCULAR HEMOGLOBIN 30.9 pg (28.0-32.0); MEAN CORPUSCULAR VOLUME 95.1 fL (80.0-94.0); MEAN PLATELET VOLUME 7.2 fl (7.4-10.4); MONOCYTES % 13.3 % (2.0-8.0); NEUTROPHILS % 70.6 % (40.0-76.0); PLATELET 331 x1000/uL (130-400); RED CELL DISTRIBUTION WIDTH 16.4 % (11.6-14.6)
[2018-11-20 05:45] LABS: CHLORIDE 97 mEq/L (98-107)
[2018-11-20] MEDS ORDERED: ALBUTEROL (0.083%) 2.5MG/3ML NEB HHN STA (06:14)
[2018-11-20 07:00] LABS: INR 1.2; PARTIAL THROMBOPLASTIN TIME 30.8 sec (23.4-31.0); PROTHROMBIN TIME 11.8 sec (9.1-11.1)
[2018-11-20 07:04] LABS: PHOSPHORUS 5.9 mg/dL (2.5-4.9)
[2018-11-20] MEDS ORDERED: IPRATROPIUM/ALBUTEROL 0.5-3(2.5)MG/3ML NEB INH PRN (11:00)
[2018-11-20] MEDS ORDERED: ACETAMINOPHEN 325MG TABLET PO PRN (11:00)
[2018-11-20] MEDS ORDERED: ONDANSETRON HCL 4MG/2ML INJ IV PRN (11:00)
[2018-11-20 21:40] VITALS: BP 170/90
[2018-11-20] MEDS ORDERED: HEPARIN SODIUM 1,000 UNIT/1ML VIAL IV NR (22:30)
[2018-11-21] MEDS ORDERED: DEXTROSE 50% WATER 50ML SYRINGE IV PRN
[2018-11-21] MEDS: CLONIDINE 0.1MG TABLET PO PRN (02:35)
[2018-11-21 04:00] VITALS: BP 150/80
[2018-11-21] MEDS: BLOOD SUGAR DIAGNOSTIC STRIP TEST SCH ×4 (06:33→21:00)
[2018-11-21] MEDS: INSULIN LISPRO 100 UNITS/ML SUBCUT SCH ×4 (06:33→21:00)
[2018-11-21 08:46] VITALS: BP 150/91
[2018-11-21 10:12] LABS: CHLORIDE 103 mEq/L (98-107)
[2018-11-21 10:22] LABS: LDL CHOLESTEROL 45 mg/dL (5-100)
[2018-11-21 10:24] LABS: HDL CHOLESTEROL 45 mg/dL (40-59)
[2018-11-21 12:00] VITALS: BP 136/74
[2018-11-21 16:41] VITALS: BP 151/85
[2018-11-21 16:42] VITALS: BP 151/85
[2018-11-21] MEDS: DIPHENHYDRAMINE 50MG/ML VIAL IV PRN (21:30)
[2018-11-22 04:51] VITALS: BP 142/83
[2018-11-22] MEDS: BLOOD SUGAR DIAGNOSTIC STRIP TEST SCH ×4 (06:03→21:00)
[2018-11-22] MEDS: INSULIN LISPRO 100 UNITS/ML SUBCUT SCH ×4 (06:04→21:00)
[2018-11-22 06:40] LABS: HEMATOCRIT 29.6 % (42.0-52.0); HEMOGLOBIN 9.4 g/dL (14.0-18.0); MEAN CORPUSCULAR HEMOGLOBIN 30.6 pg (28.0-32.0); MEAN CORPUSCULAR VOLUME 96.6 fL (80.0-94.0); PLATELET 295 x1000/uL (130-400); RED BLOOD CELL COUNT 3.07 mill/uL (4.7-6.1); RED CELL DISTRIBUTION WIDTH 16.8 % (11.6-14.6)
[2018-11-22 07:56] LABS: BASOPHILS % 1.1 % (0.0-2.0); HEMATOCRIT. 30.4 % (42.0-52.0); HEMOGLOBIN. 9.8 g/dL (14.0-18.0); LYMPHOCYTES % 12.1 % (20.0-50.0); MEAN CORPUSCULAR HEMOGLOBIN 30.6 pg (28.0-32.0); MEAN CORPUSCULAR VOLUME 95.4 fL (80.0-94.0); MEAN PLATELET VOLUME 7.5 fl (7.4-10.4); MONOCYTES % 10.4 % (2.0-8.0); NEUTROPHILS % 71.4 % (40.0-76.0); PLATELET 321 x1000/uL (130-400); RED BLOOD CELL COUNT 3.18 mill/uL (4.7-6.1); RED CELL DISTRIBUTION WIDTH 16.4 % (11.6-14.6)
[2018-11-22 08:00] VITALS: BP 150/89
[2018-11-22 12:00] VITALS: BP 163/100
[2018-11-22] MEDS: CLONIDINE 0.1MG TABLET PO PRN (12:24)
[2018-11-22 13:25] VITALS: BP 148/70
[2018-11-22] MEDS: DIPHENHYDRAMINE 50MG/ML VIAL IV PRN (13:51)
[2018-11-22 16:00] VITALS: BP 140/63
[2018-11-23 04:00] VITALS: BP 157/87
[2018-11-23] MEDS: BLOOD SUGAR DIAGNOSTIC STRIP TEST SCH ×2 (07:10→12:03)
[2018-11-23] MEDS: INSULIN LISPRO 100 UNITS/ML SUBCUT SCH ×2 (07:40→12:03)
[2018-11-23 08:00] VITALS: BP 155/92
[2018-11-23 08:01] LABS: BASOPHILS % 1.7 % (0.0-2.0); EOSINOPHILS % 6.1 % (0.0-5.0); HEMATOCRIT. 30.5 % (42.0-52.0); LYMPHOCYTES % 14.9 % (20.0-50.0); MEAN CORPUSCULAR VOLUME 94.9 fL (80.0-94.0); MEAN PLATELET VOLUME 7.3 fl (7.4-10.4); MONOCYTES % 10.5 % (2.0-8.0); NEUTROPHILS % 66.8 % (40.0-76.0); PLATELET 304 x1000/uL (130-400); RED BLOOD CELL COUNT 3.21 mill/uL (4.7-6.1); RED CELL DISTRIBUTION WIDTH 16.4 % (11.6-14.6)
[2018-11-23] MEDS: CLONIDINE 0.1MG TABLET PO PRN (10:20)
[2018-11-23] MEDS ORDERED: FOLIC ACID/VITAMIN B COMP W-C TABLET PO SCH (11:15)
[2018-11-23 12:00] VITALS: BP 122/78
[2018-11-23] MEDS ORDERED: SEVELAMER CARBONATE 800 MG TABLET PO SCH (13:00)
== END 2018-11-23 14:51 | disposition left against medical advice (07) | DRG 425 ==
LOC: ER 00:56 → 8WST 06:36 → EDBEDREQ 06:53 → EDBEDREQTM 06:53 → ENRESERV 18:35
PROVIDERS: ADMIT Internal Medicine; ATTEND Internal Medicine
PROC: 5A1D70Z Performance of Urinary Filtration, Intermittent, Less than 6 Hours Per Day (ICD-10-PCS; principal; 2018-11-20)
PROC: 5A1D70Z Performance of Urinary Filtration, Intermittent, Less than 6 Hours Per Day (ICD-10-PCS; 2018-11-21)
DX: E87.70 Fluid overload, unspecified (principal); I13.11 Hypertensive heart and chronic kidney disease without heart failure, with stage 5 chronic kidney disease, or end stage renal disease; I27.20 Pulmonary hypertension, unspecified; N18.6 End stage renal disease; E44.1 Mild protein-calorie malnutrition; D64.9 Anemia, unspecified; F99 Mental disorder, not otherwise specified; Z53.21 Procedure and treatment not carried out due to patient leaving prior to being seen by health care provider; G89.4 Chronic pain syndrome; F41.9 Anxiety disorder, unspecified; M54.9 Dorsalgia, unspecified; Z91.15 Patient's noncompliance with renal dialysis; Z59.0 Homelessness; Z99.2 Dependence on renal dialysis; Z88.5 Allergy status to narcotic agent; Z91.81 History of falling
CPT/HCPCS: 36415; 71045; 80048; 80061; 83735; 83880; 84100; 84484; 85027; 93005; 96374; 96375; 97165; 99285; J1200; J1644; J7611

== ENCOUNTER 2018-12-03 00:04 | Inpatient (IN) | payer MEDICAID ==
[~2018-12-03] VITALS: Ht 180.3 cm; Wt 82.1 kg
[2018-12-03] MEDS ORDERED: HYDROMORPHONE HCL/PF 2MG/ML CPJ IV PRN (07:15)
[2018-12-03] MEDS ORDERED: GUAIFENESIN 200MG/10ML SUGAR FREE UDC PO PRN (07:15)
[2018-12-03] MEDS ORDERED: MAGNESIUM/ALUMINUM HYDROXIDE/SIMETHICONE 30ML UDC PO PRN (07:15)
[2018-12-03] MEDS ORDERED: ACETAMINOPHEN 325MG TABLET PO PRN (07:15)
[2018-12-03] MEDS ORDERED: ONDANSETRON HCL 4MG/2ML INJ IV PRN (07:15)
[2018-12-03] MEDS ORDERED: DOCUSATE SODIUM 100MG CAPSULE PO PRN (07:15)
[2018-12-03] MEDS ORDERED: DIPHENHYDRAMINE 50MG/ML VIAL IV PRN (07:15)
[2018-12-03 07:56] LABS: BASOPHILS % 2.1 % (0.0-2.0); EOSINOPHILS % 1.4 % (0.0-5.0); HEMATOCRIT. 35.7 % (42.0-52.0); HEMOGLOBIN. 11.4 g/dL (14.0-18.0); LYMPHOCYTES % 11.5 % (20.0-50.0); MEAN CORPUSCULAR HEMOGLOBIN 30.3 pg (28.0-32.0); MEAN CORPUSCULAR VOLUME 94.8 fL (80.0-94.0); MEAN PLATELET VOLUME 7.6 fl (7.4-10.4); MONOCYTES % 7.2 % (2.0-8.0); NEUTROPHILS % 77.8 % (40.0-76.0); PLATELET 358 x1000/uL (130-400); RED BLOOD CELL COUNT 3.77 mill/uL (4.7-6.1); RED CELL DISTRIBUTION WIDTH 16.7 % (11.6-14.6)
[2018-12-03 08:00] VITALS: BP 149/93
[2018-12-03] MEDS: AMLODIPINE 10MG TABLET PO SCH (09:00)
[2018-12-03 09:04] VITALS: BP 149/93
[2018-12-03] MEDS ORDERED: HEPARIN SODIUM 1,000 UNIT/1ML VIAL IV NR (18:00)
[2018-12-03 20:00] VITALS: BP 121/70
[2018-12-03 20:32] LABS: CHLORIDE 99 mEq/L (98-107)
[2018-12-03] MEDS: CLONIDINE 0.1MG TABLET PO PRN (20:45)
[2018-12-03 20:51] LABS: PHOSPHORUS 11.3 mg/dL (2.5-4.9)
[2018-12-03 22:51] VITALS: BP 172/75
[2018-12-04 04:00] VITALS: BP 122/69
[2018-12-04] MEDS: HYDROCODONE/ACETAMINOPHEN 5/325MG TABLET PO PRN ×2 (04:28→15:22)
[2018-12-04 08:00] VITALS: BP 117/69
[2018-12-04] MEDS: AMLODIPINE 10MG TABLET PO SCH (08:43)
[2018-12-04 09:45] LABS: EOSINOPHILS % 3.2 % (0.0-5.0); HEMOGLOBIN. 10.6 g/dL (14.0-18.0); MEAN CORPUSCULAR HEMOGLOBIN 30.2 pg (28.0-32.0); MEAN CORPUSCULAR VOLUME 94.2 fL (80.0-94.0); MEAN PLATELET VOLUME 7.2 fl (7.4-10.4); MONOCYTES % 8.8 % (2.0-8.0); PLATELET 299 x1000/uL (130-400); RED BLOOD CELL COUNT 3.51 mill/uL (4.7-6.1); RED CELL DISTRIBUTION WIDTH 16.6 % (11.6-14.6)
[2018-12-04 09:51] LABS: CHLORIDE 107 mEq/L (98-107)
[2018-12-04 12:00] VITALS: BP 144/77
[2018-12-04] MEDS: SODIUM POLYSTYRENE SULFONATE 15 G/60 ML BOT PO NR ×2 (13:08→13:47)
[2018-12-04 15:02] VITALS: BP 144/77
[2018-12-04 16:00] VITALS: BP 179/104
[2018-12-05] VITALS: BP 154/94
[2018-12-05 04:00] VITALS: BP 171/94
[2018-12-05] MEDS: CLONIDINE 0.1MG TABLET PO PRN (04:42)
== END 2018-12-05 09:17 | disposition home or self-care (01) | DRG 194 ==
LOC: ER 00:04 → EDBEDREQTM 06:36 → EDBEDREQ 06:36 → ENRESERV 07:09 → 8WST 07:16
PROVIDERS: ADMIT Hospitalist; ATTEND Hospitalist
PROC: 5A1D70Z Performance of Urinary Filtration, Intermittent, Less than 6 Hours Per Day (ICD-10-PCS; principal; 2018-12-03)
PROC: 5A1D70Z Performance of Urinary Filtration, Intermittent, Less than 6 Hours Per Day (ICD-10-PCS; 2018-12-05)
DX: I13.2 Hypertensive heart and chronic kidney disease with heart failure and with stage 5 chronic kidney disease, or end stage renal disease (principal); I27.20 Pulmonary hypertension, unspecified; N18.6 End stage renal disease; E44.0 Moderate protein-calorie malnutrition; D63.1 Anemia in chronic kidney disease; F41.9 Anxiety disorder, unspecified; G89.4 Chronic pain syndrome; I50.33 Acute on chronic diastolic (congestive) heart failure; Z91.15 Patient's noncompliance with renal dialysis; Z91.19 Patient's noncompliance with other medical treatment and regimen; Z99.2 Dependence on renal dialysis; Z88.5 Allergy status to narcotic agent
CPT/HCPCS: 36415; 71045; 83735; 84100; 84484; 93005; 93970; 99285

== ENCOUNTER 2018-12-10 07:30 | Emergency (ER) | payer MEDICAID ==
[~2018-12-10] VITALS: Ht 185.4 cm; Wt 82.1 kg
[2018-12-10] MEDS ORDERED: MORPHINE SULFATE 4 MG/ML CPJ (NOT FOR IM USE) IV STA (11:57)
[2018-12-10] MEDS ORDERED: ONDANSETRON HCL 4MG/2ML INJ IV STA (11:57)
[2018-12-10 12:25] LABS: BASOPHILS % 0.4 % (0.0-2.0); EOSINOPHILS % 6.6 % (0.0-5.0); HEMATOCRIT. 37.8 % (42.0-52.0); HEMOGLOBIN. 12.3 g/dL (14.0-18.0); LYMPHOCYTES % 17.1 % (20.0-50.0); MEAN CORPUSCULAR HEMOGLOBIN 30.7 pg (28.0-32.0); MEAN CORPUSCULAR VOLUME 94.6 fL (80.0-94.0); MEAN PLATELET VOLUME 7.6 fl (7.4-10.4); MONOCYTES % 11.9 % (2.0-8.0); PLATELET 333 x1000/uL (130-400); RED CELL DISTRIBUTION WIDTH 17.7 % (11.6-14.6)
[2018-12-10 12:31] LABS: CHLORIDE 99 mEq/L (98-107); INR 1.1; PROTHROMBIN TIME 10.8 sec (9.1-11.1)
[2018-12-10] MEDS ORDERED: ONDANSETRON HCL 4MG/2ML INJ IV PRN (18:30)
[2018-12-10] MEDS ORDERED: ACETAMINOPHEN 325MG TABLET PO PRN (18:30)
[2018-12-10] MEDS ORDERED: HYDRALAZINE 20MG/ML VIAL IV PRN (18:30)
[2018-12-10 20:00] VITALS: BP 151/99
[2018-12-11] MEDS ORDERED: SEVELAMER CARBONATE 800 MG TABLET PO SCH (09:00)
[2018-12-11] MEDS ORDERED: NIFEDIPINE XL 60MG TAB PO SCH (09:00)
[2018-12-11] MEDS ORDERED: LOSARTAN POTASSIUM 50 MG TABLET PO SCH (09:00)
== END 2018-12-10 20:30 | disposition left against medical advice (07) ==
LOC: ER 07:37 → EDBEDREQ 15:42 → EDBEDREQTM 15:46 → ER 20:30 → ENRESERV 21:32 → CANRESERV 21:32 → CANBEDREQ 21:49
DX: E87.70 Fluid overload, unspecified (principal); R10.9 Unspecified abdominal pain; R11.10 Vomiting, unspecified; R18.8 Other ascites; I12.0 Hypertensive chronic kidney disease with stage 5 chronic kidney disease or end stage renal disease; N18.6 End stage renal disease; Z99.2 Dependence on renal dialysis
CPT/HCPCS: 36415; 71045; 74176; 80053; 83690; 85025; 85610; 99284; J2405; J2270

== ENCOUNTER 2018-12-11 08:50 | Inpatient (IN) | payer MEDICAID ==
[~2018-12-11] VITALS: Ht 180.3 cm; Wt 79.4 kg
[2018-12-11 10:47] LABS: BASOPHILS % 1.8 % (0.0-2.0); EOSINOPHILS % 5.5 % (0.0-5.0); HEMATOCRIT. 35.3 % (42.0-52.0); HEMOGLOBIN. 11.5 g/dL (14.0-18.0); LYMPHOCYTES % 17.1 % (20.0-50.0); MEAN CORPUSCULAR HEMOGLOBIN 30.6 pg (28.0-32.0); MEAN CORPUSCULAR VOLUME 93.9 fL (80.0-94.0); MEAN PLATELET VOLUME 7.4 fl (7.4-10.4); MONOCYTES % 9.1 % (2.0-8.0); NEUTROPHILS % 66.5 % (40.0-76.0); PLATELET 300 x1000/uL (130-400); RED BLOOD CELL COUNT 3.76 mill/uL (4.7-6.1); RED CELL DISTRIBUTION WIDTH 17.3 % (11.6-14.6)
[2018-12-11 10:53] LABS: INR 1.1; PROTHROMBIN TIME 10.9 sec (9.1-11.1)
[2018-12-11] MEDS ORDERED: HYDRALAZINE 20MG/ML VIAL IV PRN (14:30)
[2018-12-11] MEDS ORDERED: ONDANSETRON HCL 4MG/2ML INJ IV PRN (14:30)
[2018-12-11] MEDS ORDERED: ACETAMINOPHEN 325MG TABLET PO PRN (14:30)
[2018-12-11 20:00] VITALS: BP 160/92
[2018-12-11 20:28] VITALS: BP 160/92
[2018-12-12 06:27] LABS: BASOPHILS % 1.6 % (0.0-2.0); EOSINOPHILS % 6.9 % (0.0-5.0); HEMATOCRIT. 33.7 % (42.0-52.0); LYMPHOCYTES % 22.6 % (20.0-50.0); MEAN CORPUSCULAR HEMOGLOBIN 30.9 pg (28.0-32.0); MEAN CORPUSCULAR VOLUME 94.3 fL (80.0-94.0); MEAN PLATELET VOLUME 7.4 fl (7.4-10.4); MONOCYTES % 9.1 % (2.0-8.0); NEUTROPHILS % 59.8 % (40.0-76.0); PLATELET 279 x1000/uL (130-400); RED BLOOD CELL COUNT 3.57 mill/uL (4.7-6.1); RED CELL DISTRIBUTION WIDTH 16.9 % (11.6-14.6)
[2018-12-12] MEDS: NIFEDIPINE XL 60MG TAB PO SCH (09:03)
[2018-12-12] MEDS: SEVELAMER CARBONATE 800 MG TABLET PO SCH ×3 (09:04→17:50)
[2018-12-12] MEDS: DIVALPROEX SODIUM 250MG ER TABLET PO SCH (11:03)
[2018-12-12 12:00] VITALS: BP 151/79
[2018-12-12 20:00] VITALS: BP 140/89
[2018-12-13 00:28] VITALS: BP 158/58
[2018-12-13 04:00] VITALS: BP 148/78
[2018-12-13 08:00] VITALS: BP 157/72
[2018-12-13] MEDS: SEVELAMER CARBONATE 800 MG TABLET PO SCH ×3 (09:09→18:31)
[2018-12-13] MEDS: DIVALPROEX SODIUM 250MG ER TABLET PO SCH (09:10)
[2018-12-13] MEDS: HYDROCODONE/ACETAMINOPHEN 5/325MG TABLET PO PRN (09:10)
[2018-12-13] MEDS: NIFEDIPINE XL 60MG TAB PO SCH ×2 (09:10→22:42)
[2018-12-13 12:10] VITALS: BP 164/95
[2018-12-13 16:00] VITALS: BP 170/100
[2018-12-13 22:48] VITALS: BP 158/83
[2018-12-14 05:10] VITALS: BP 148/86
[2018-12-14 06:55] LABS: BASOPHILS % 1.4 % (0.0-2.0); EOSINOPHILS % 7.1 % (0.0-5.0); HEMATOCRIT. 32.6 % (42.0-52.0); HEMOGLOBIN. 10.5 g/dL (14.0-18.0); LYMPHOCYTES % 18.7 % (20.0-50.0); MEAN CORPUSCULAR HEMOGLOBIN 30.3 pg (28.0-32.0); MEAN CORPUSCULAR VOLUME 93.8 fL (80.0-94.0); MEAN PLATELET VOLUME 7.7 fl (7.4-10.4); MONOCYTES % 12.4 % (2.0-8.0); NEUTROPHILS % 60.4 % (40.0-76.0); PLATELET 238 x1000/uL (130-400); RED BLOOD CELL COUNT 3.47 mill/uL (4.7-6.1); RED CELL DISTRIBUTION WIDTH 16.8 % (11.6-14.6)
[2018-12-14 07:25] LABS: CHLORIDE 99 mEq/L (98-107)
[2018-12-14 08:00] VITALS: BP 159/88
[2018-12-14] MEDS: SEVELAMER CARBONATE 800 MG TABLET PO SCH ×3 (08:35→18:49)
[2018-12-14] MEDS: NIFEDIPINE XL 60MG TAB PO SCH ×2 (08:35→18:50)
[2018-12-14] MEDS: DIVALPROEX SODIUM 250MG ER TABLET PO SCH (08:35)
[2018-12-14 12:00] VITALS: BP 90/56
[2018-12-14 16:00] VITALS: BP 159/98
[2018-12-14] MEDS: HYDROCODONE/ACETAMINOPHEN 5/325MG TABLET PO PRN (18:51)
[2018-12-14 20:00] VITALS: BP 146/94
[2018-12-15 04:00] VITALS: BP 164/94
[2018-12-15] MEDS: NIFEDIPINE XL 60MG TAB PO SCH ×2 (05:07→17:00)
[2018-12-15 06:20] LABS: BASOPHILS % 1.7 % (0.0-2.0); EOSINOPHILS % 6.1 % (0.0-5.0); HEMATOCRIT. 35.8 % (42.0-52.0); HEMOGLOBIN. 11.6 g/dL (14.0-18.0); LYMPHOCYTES % 19.7 % (20.0-50.0); MEAN CORPUSCULAR HEMOGLOBIN 30.2 pg (28.0-32.0); MEAN CORPUSCULAR VOLUME 93.7 fL (80.0-94.0); MONOCYTES % 11.8 % (2.0-8.0); NEUTROPHILS % 60.7 % (40.0-76.0); PLATELET 235 x1000/uL (130-400); RED BLOOD CELL COUNT 3.83 mill/uL (4.7-6.1); RED CELL DISTRIBUTION WIDTH 16.7 % (11.6-14.6)
[2018-12-15 08:00] VITALS: BP 151/99
[2018-12-15] MEDS: SEVELAMER CARBONATE 800 MG TABLET PO SCH ×3 (08:28→18:56)
[2018-12-15] MEDS: DIVALPROEX SODIUM 250MG ER TABLET PO SCH (08:28)
[2018-12-15 12:00] VITALS: BP 134/93
[2018-12-16] VITALS: BP 143/73
[2018-12-16 06:18] LABS: BASOPHILS % 1.5 % (0.0-2.0); EOSINOPHILS % 6.7 % (0.0-5.0); HEMATOCRIT. 34.9 % (42.0-52.0); HEMOGLOBIN. 11.5 g/dL (14.0-18.0); LYMPHOCYTES % 21.4 % (20.0-50.0); MEAN CORPUSCULAR HEMOGLOBIN 30.9 pg (28.0-32.0); MEAN CORPUSCULAR VOLUME 93.6 fL (80.0-94.0); MEAN PLATELET VOLUME 7.8 fl (7.4-10.4); MONOCYTES % 12.6 % (2.0-8.0); NEUTROPHILS % 57.8 % (40.0-76.0); PLATELET 229 x1000/uL (130-400); RED BLOOD CELL COUNT 3.73 mill/uL (4.7-6.1); RED CELL DISTRIBUTION WIDTH 16.5 % (11.6-14.6)
[2018-12-16] MEDS: SEVELAMER CARBONATE 800 MG TABLET PO SCH ×3 (07:48→18:10)
[2018-12-16] MEDS: DIVALPROEX SODIUM 250MG ER TABLET PO SCH (07:48)
[2018-12-16] MEDS: NIFEDIPINE XL 60MG TAB PO SCH ×2 (07:48→17:00)
[2018-12-16 08:00] VITALS: BP 200/93
[2018-12-16 12:00] VITALS: BP 180/90
[2018-12-16 16:00] VITALS: BP 150/80
[2018-12-16 16:34] LABS: HEPATITIS B SURFACE ANTIGEN NEGATIVE
[2018-12-16 17:00] LABS: HEPATITIS A AB IGM NEGATIVE (NEGATIVE)
[2018-12-16] MEDS: HYDROCODONE/ACETAMINOPHEN 5/325MG TABLET PO PRN (23:45)
[2018-12-17] VITALS: BP 139/88
[2018-12-17] MEDS: NIFEDIPINE XL 60MG TAB PO SCH ×2 (07:50→17:30)
[2018-12-17] MEDS: SEVELAMER CARBONATE 800 MG TABLET PO SCH ×3 (07:50→17:30)
[2018-12-17] MEDS: DIVALPROEX SODIUM 250MG ER TABLET PO SCH (07:50)
[2018-12-17 09:46] LABS: HEMATOCRIT. 38.2 % (42.0-52.0); HEMOGLOBIN. 12.4 g/dL (14.0-18.0); LYMPHOCYTES % 16.5 % (20.0-50.0); MEAN CORPUSCULAR HEMOGLOBIN 30.5 pg (28.0-32.0); MEAN CORPUSCULAR VOLUME 93.6 fL (80.0-94.0); MEAN PLATELET VOLUME 7.8 fl (7.4-10.4); MONOCYTES % 12.8 % (2.0-8.0); NEUTROPHILS % 62.7 % (40.0-76.0); PLATELET 233 x1000/uL (130-400); RED BLOOD CELL COUNT 4.08 mill/uL (4.7-6.1); RED CELL DISTRIBUTION WIDTH 16.6 % (11.6-14.6)
[2018-12-17 12:00] VITALS: BP 108/59
[2018-12-17 16:00] VITALS: BP 158/91
[2018-12-18 08:00] VITALS: BP 171/97
[2018-12-18 10:45] LABS: BASOPHILS % 0.4 % (0.0-2.0); HEMATOCRIT. 34.6 % (42.0-52.0); HEMOGLOBIN. 11.3 g/dL (14.0-18.0); LYMPHOCYTES % 20.8 % (20.0-50.0); MEAN CORPUSCULAR HEMOGLOBIN 30.7 pg (28.0-32.0); MEAN CORPUSCULAR VOLUME 93.6 fL (80.0-94.0); MEAN PLATELET VOLUME 7.7 fl (7.4-10.4); MONOCYTES % 11.8 % (2.0-8.0); PLATELET 216 x1000/uL (130-400); RED BLOOD CELL COUNT 3.69 mill/uL (4.7-6.1); RED CELL DISTRIBUTION WIDTH 16.3 % (11.6-14.6)
[2018-12-18 11:54] VITALS: BP 161/97
[2018-12-18] MEDS: DIVALPROEX SODIUM 250MG ER TABLET PO SCH (11:57)
[2018-12-18] MEDS: NIFEDIPINE XL 60MG TAB PO SCH ×2 (11:57→20:32)
[2018-12-18] MEDS: SEVELAMER CARBONATE 800 MG TABLET PO SCH ×3 (11:57→20:32)
[2018-12-18] MEDS: FOLIC ACID/VITAMIN B COMP W-C TABLET PO SCH (15:11)
[2018-12-18 20:00] VITALS: BP 180/111
[2018-12-18] MEDS: HYDROCODONE/ACETAMINOPHEN 5/325MG TABLET PO PRN (21:43)
[2018-12-19] VITALS: BP 171/96
[2018-12-19 04:00] VITALS: BP 161/84
[2018-12-19 06:40] LABS: EOSINOPHILS % 6.4 % (0.0-5.0); HEMATOCRIT. 35.5 % (42.0-52.0); HEMOGLOBIN. 11.6 g/dL (14.0-18.0); LYMPHOCYTES % 19.3 % (20.0-50.0); MEAN CORPUSCULAR HEMOGLOBIN 30.7 pg (28.0-32.0); MEAN CORPUSCULAR VOLUME 93.4 fL (80.0-94.0); MEAN PLATELET VOLUME 7.9 fl (7.4-10.4); MONOCYTES % 10.7 % (2.0-8.0); NEUTROPHILS % 61.6 % (40.0-76.0); PLATELET 219 x1000/uL (130-400); RED CELL DISTRIBUTION WIDTH 16.3 % (11.6-14.6)
[2018-12-19 08:00] VITALS: BP 133/89
[2018-12-19] MEDS: FOLIC ACID/VITAMIN B COMP W-C TABLET PO SCH (08:43)
[2018-12-19] MEDS: SEVELAMER CARBONATE 800 MG TABLET PO SCH ×3 (08:43→17:35)
[2018-12-19] MEDS: DIVALPROEX SODIUM 250MG ER TABLET PO SCH (08:43)
[2018-12-19] MEDS: NIFEDIPINE XL 60MG TAB PO SCH ×2 (08:44→17:35)
[2018-12-19 12:00] VITALS: BP 128/79
[2018-12-19 16:00] VITALS: BP 129/64
[2018-12-19 20:00] VITALS: BP 125/72
[2018-12-20 08:00] VITALS: BP 159/89
[2018-12-20] MEDS: SEVELAMER CARBONATE 800 MG TABLET PO SCH ×3 (08:10→17:36)
[2018-12-20 08:50] LABS: BASOPHILS % 2.9 % (0.0-2.0); EOSINOPHILS % 7.5 % (0.0-5.0); HEMATOCRIT. 35.5 % (42.0-52.0); HEMOGLOBIN. 11.7 g/dL (14.0-18.0); LYMPHOCYTES % 20.7 % (20.0-50.0); MEAN CORPUSCULAR VOLUME 94.3 fL (80.0-94.0); MEAN PLATELET VOLUME 7.9 fl (7.4-10.4); MONOCYTES % 11.9 % (2.0-8.0); PLATELET 246 x1000/uL (130-400); RED BLOOD CELL COUNT 3.76 mill/uL (4.7-6.1); RED CELL DISTRIBUTION WIDTH 16.6 % (11.6-14.6)
[2018-12-20] MEDS: NIFEDIPINE XL 60MG TAB PO SCH ×2 (09:00→17:19)
[2018-12-20] MEDS: FOLIC ACID/VITAMIN B COMP W-C TABLET PO SCH (09:00)
[2018-12-20] MEDS: DIVALPROEX SODIUM 250MG ER TABLET PO SCH (09:00)
[2018-12-20 12:00] VITALS: BP 142/79
[2018-12-20 16:00] VITALS: BP 148/84
[2018-12-20 20:00] VITALS: BP 132/77
[2018-12-21] VITALS: BP 142/92
[2018-12-21] MEDS: HYDROCODONE/ACETAMINOPHEN 5/325MG TABLET PO PRN (01:32)
[2018-12-21 08:00] VITALS: BP 128/84
[2018-12-21] MEDS: FOLIC ACID/VITAMIN B COMP W-C TABLET PO SCH (08:51)
[2018-12-21] MEDS: SEVELAMER CARBONATE 800 MG TABLET PO SCH ×3 (08:51→18:45)
[2018-12-21] MEDS: DIVALPROEX SODIUM 250MG ER TABLET PO SCH (08:52)
[2018-12-21] MEDS: NIFEDIPINE XL 60MG TAB PO SCH ×2 (08:52→17:35)
[2018-12-21 16:00] VITALS: BP 124/82
[2018-12-21 23:39] VITALS: BP 128/86
[2018-12-22 04:00] VITALS: BP 132/80
[2018-12-22 08:00] VITALS: BP 152/113
[2018-12-22] MEDS: SEVELAMER CARBONATE 800 MG TABLET PO SCH ×3 (08:11→18:17)
[2018-12-22] MEDS: NIFEDIPINE XL 60MG TAB PO SCH ×2 (08:11→17:00)
[2018-12-22] MEDS: DIVALPROEX SODIUM 250MG ER TABLET PO SCH (08:11)
[2018-12-22] MEDS: FOLIC ACID/VITAMIN B COMP W-C TABLET PO SCH (08:11)
[2018-12-22 12:00] VITALS: BP 127/81
[2018-12-22 16:00] VITALS: BP 153/94
[2018-12-22 20:00] VITALS: BP 176/99
[2018-12-22 22:07] LABS: BASOPHILS % 1.6 % (0.0-2.0); EOSINOPHILS % 7.1 % (0.0-5.0); HEMATOCRIT. 32.5 % (42.0-52.0); HEMOGLOBIN. 10.6 g/dL (14.0-18.0); LYMPHOCYTES % 18.2 % (20.0-50.0); MEAN CORPUSCULAR HEMOGLOBIN 30.3 pg (28.0-32.0); MEAN CORPUSCULAR VOLUME 92.9 fL (80.0-94.0); MEAN PLATELET VOLUME 7.8 fl (7.4-10.4); NEUTROPHILS % 61.1 % (40.0-76.0); PLATELET 241 x1000/uL (130-400); RED CELL DISTRIBUTION WIDTH 16.3 % (11.6-14.6)
[2018-12-23] VITALS: BP 150/82
[2018-12-23] MEDS: DIVALPROEX SODIUM 250MG ER TABLET PO SCH (08:54)
[2018-12-23] MEDS: FOLIC ACID/VITAMIN B COMP W-C TABLET PO SCH (08:54)
[2018-12-23] MEDS: NIFEDIPINE XL 60MG TAB PO SCH (08:54)
[2018-12-23] MEDS: SEVELAMER CARBONATE 800 MG TABLET PO SCH ×2 (08:54→13:43)
[2018-12-23 12:00] VITALS: BP 172/100
[2018-12-23 12:09] LABS: BASOPHILS % 0.3 % (0.0-2.0); EOSINOPHILS % 8.8 % (0.0-5.0); HEMATOCRIT. 31.9 % (42.0-52.0); HEMOGLOBIN. 10.6 g/dL (14.0-18.0); LYMPHOCYTES % 16.9 % (20.0-50.0); MEAN CORPUSCULAR VOLUME 93.2 fL (80.0-94.0); MEAN PLATELET VOLUME 7.6 fl (7.4-10.4); PLATELET 231 x1000/uL (130-400); RED BLOOD CELL COUNT 3.42 mill/uL (4.7-6.1); RED CELL DISTRIBUTION WIDTH 16.3 % (11.6-14.6)
[2018-12-23 13:00] VITALS: BP 146/95
== END 2018-12-23 14:45 | disposition home or self-care (01) | DRG 194 ==
LOC: ER 08:50 → 7WST 12:01 → EDBEDREQ 12:06 → ENRESERV 17:43
PROVIDERS: ADMIT Internal Medicine; ATTEND Internal Medicine
PROC: 5A1D70Z Performance of Urinary Filtration, Intermittent, Less than 6 Hours Per Day (ICD-10-PCS; 2018-12-11)
PROC: 5A1D70Z Performance of Urinary Filtration, Intermittent, Less than 6 Hours Per Day (ICD-10-PCS; 2018-12-12)
PROC: 5A1D70Z Performance of Urinary Filtration, Intermittent, Less than 6 Hours Per Day (ICD-10-PCS; 2018-12-13)
PROC: 5A1D70Z Performance of Urinary Filtration, Intermittent, Less than 6 Hours Per Day (ICD-10-PCS; 2018-12-16)
PROC: 5A1D70Z Performance of Urinary Filtration, Intermittent, Less than 6 Hours Per Day (ICD-10-PCS; 2018-12-18)
PROC: 5A1D70Z Performance of Urinary Filtration, Intermittent, Less than 6 Hours Per Day (ICD-10-PCS; 2018-12-20)
PROC: 5A1D70Z Performance of Urinary Filtration, Intermittent, Less than 6 Hours Per Day (ICD-10-PCS; principal; 2018-12-21)
DX: I13.2 Hypertensive heart and chronic kidney disease with heart failure and with stage 5 chronic kidney disease, or end stage renal disease (principal); I27.20 Pulmonary hypertension, unspecified; E44.0 Moderate protein-calorie malnutrition; N18.6 End stage renal disease; I42.9 Cardiomyopathy, unspecified; I07.1 Rheumatic tricuspid insufficiency; E87.5 Hyperkalemia; G89.4 Chronic pain syndrome; I50.23 Acute on chronic systolic (congestive) heart failure; D63.8 Anemia in other chronic diseases classified elsewhere; F41.9 Anxiety disorder, unspecified; Z99.2 Dependence on renal dialysis; Z91.19 Patient's noncompliance with other medical treatment and regimen; Z68.24 Body mass index [BMI] 24.0-24.9, adult; Z88.5 Allergy status to narcotic agent; Z79.82 Long term (current) use of aspirin
CPT/HCPCS: 36415; 71045; 80048; 86705; 86706; 86709; 86803; 87340; 93005; 99285; J0360

== ENCOUNTER 2019-01-24 11:38 | Emergency (ER) | payer MEDICAID ==
[~2019-01-24] VITALS: Ht 180.3 cm; Wt 77.0 kg
[2019-01-24 11:50] VITALS: BP 156/111
== END 2019-01-24 14:37 | disposition left against medical advice (07) ==
LOC: ER 11:42
DX: Z53.21 Procedure and treatment not carried out due to patient leaving prior to being seen by health care provider (principal)

== ENCOUNTER 2019-01-31 08:32 | Inpatient (IN) | payer MEDICAID ==
[~2019-01-31] VITALS: Ht 332.7 cm; Wt 82.6 kg
[2019-01-31 09:30] LABS: BASOPHILS % 1.9 % (0.0-2.0); EOSINOPHILS % 11.1 % (0.0-5.0); HEMATOCRIT. 36.1 % (42.0-52.0); LYMPHOCYTES % 12.2 % (20.0-50.0); MEAN CORPUSCULAR HEMOGLOBIN 31.1 pg (28.0-32.0); MEAN CORPUSCULAR VOLUME 93.7 fL (80.0-94.0); MEAN PLATELET VOLUME 7.3 fl (7.4-10.4); MONOCYTES % 10.2 % (2.0-8.0); NEUTROPHILS % 64.6 % (40.0-76.0); PLATELET 352 x1000/uL (130-400); RED BLOOD CELL COUNT 3.86 mill/uL (4.7-6.1); RED CELL DISTRIBUTION WIDTH 17.6 % (11.6-14.6)
[2019-01-31 09:36] LABS: CHLORIDE 97 mEq/L (98-107)
[2019-01-31 14:19] VITALS: BP 124/75
[2019-01-31 15:43] VITALS: BP 124/75
[2019-01-31] MEDS ORDERED: LORAZEPAM 0.5MG TABLET PO PRN (16:00)
[2019-01-31] MEDS ORDERED: CLONIDINE 0.1MG TABLET PO PRN (16:00)
[2019-01-31] MEDS ORDERED: DOCUSATE SODIUM 100MG CAPSULE PO PRN (16:00)
[2019-01-31] MEDS ORDERED: IPRATROPIUM/ALBUTEROL 0.5-3(2.5)MG/3ML NEB INH PRN (16:00)
[2019-01-31] MEDS ORDERED: ONDANSETRON HCL 4MG/2ML INJ IV PRN (16:00)
[2019-01-31 16:35] VITALS: BP 121/74
[2019-01-31] MEDS: FOLIC ACID/VITAMIN B COMP W-C TABLET PO SCH (17:05)
[2019-01-31] MEDS: SEVELAMER CARBONATE 800 MG TABLET PO SCH ×2 (17:05→17:08)
[2019-01-31] MEDS: HYDROCODONE/ACETAMINOPHEN 5/325MG TABLET PO PRN (17:06)
[2019-01-31 19:14] LABS: FOLIC ACID (FOLATE) SERUM 12.1 ng/mL (>5.38)
[2019-01-31 20:06] VITALS: BP 118/77
[2019-01-31] MEDS: ACETAMINOPHEN 325MG TABLET PO PRN (20:44)
[2019-02-01 00:07] VITALS: BP 124/80
[2019-02-01 04:00] VITALS: BP 141/87
[2019-02-01] MEDS: HYDROCODONE/ACETAMINOPHEN 5/325MG TABLET PO PRN ×2 (05:42→12:10)
[2019-02-01 07:27] LABS: BASOPHILS % 2.5 % (0.0-2.0); EOSINOPHILS % 10.1 % (0.0-5.0); HEMATOCRIT. 31.5 % (42.0-52.0); HEMOGLOBIN. 10.6 g/dL (14.0-18.0); LYMPHOCYTES % 17.5 % (20.0-50.0); MEAN CORPUSCULAR HEMOGLOBIN 31.6 pg (28.0-32.0); MEAN CORPUSCULAR VOLUME 94.1 fL (80.0-94.0); MEAN PLATELET VOLUME 7.3 fl (7.4-10.4); MONOCYTES % 9.9 % (2.0-8.0); PLATELET 321 x1000/uL (130-400); RED BLOOD CELL COUNT 3.34 mill/uL (4.7-6.1); RED CELL DISTRIBUTION WIDTH 17.2 % (11.6-14.6)
[2019-02-01 08:00] VITALS: BP 132/75
[2019-02-01] MEDS: SEVELAMER CARBONATE 800 MG TABLET PO SCH ×3 (08:37→18:12)
[2019-02-01] MEDS: FOLIC ACID/VITAMIN B COMP W-C TABLET PO SCH (08:37)
[2019-02-01 09:10] LABS: PHOSPHORUS 7.8 mg/dL (2.5-4.9)
[2019-02-01 12:00] VITALS: BP 113/71
[2019-02-01 12:40] VITALS: BP 113/71
[2019-02-01] MEDS ORDERED: DIPHENHYDRAMINE 50MG/ML VIAL IV NR (16:00)
[2019-02-01] MEDS ORDERED: HEPARIN SODIUM 1,000 UNIT/1ML VIAL IV NR (16:00)
[2019-02-01 16:56] VITALS: BP 105/68
[2019-02-02] VITALS: BP 129/79
[2019-02-02] MEDS: HYDROCODONE/ACETAMINOPHEN 5/325MG TABLET PO PRN ×2 (04:44→21:29)
[2019-02-02 04:51] VITALS: BP 161/75
[2019-02-02] MEDS: SEVELAMER CARBONATE 800 MG TABLET PO SCH ×3 (07:50→17:50)
[2019-02-02] MEDS ORDERED: DIPHENHYDRAMINE 50MG/ML VIAL IV NR (08:00)
[2019-02-02] MEDS: FOLIC ACID/VITAMIN B COMP W-C TABLET PO SCH (08:14)
[2019-02-02 16:00] VITALS: BP 140/80
[2019-02-02 20:15] VITALS: BP 128/67
[2019-02-03 07:20] LABS: BASOPHILS % 1.8 % (0.0-2.0); EOSINOPHILS % 9.3 % (0.0-5.0); HEMATOCRIT. 31.5 % (42.0-52.0); HEMOGLOBIN. 10.4 g/dL (14.0-18.0); MEAN CORPUSCULAR HEMOGLOBIN 31.3 pg (28.0-32.0); MEAN CORPUSCULAR VOLUME 94.8 fL (80.0-94.0); MEAN PLATELET VOLUME 7.6 fl (7.4-10.4); MONOCYTES % 11.2 % (2.0-8.0); NEUTROPHILS % 59.7 % (40.0-76.0); PLATELET 294 x1000/uL (130-400); RED BLOOD CELL COUNT 3.32 mill/uL (4.7-6.1); RED CELL DISTRIBUTION WIDTH 17.3 % (11.6-14.6)
[2019-02-03 08:00] VITALS: BP 116/70
[2019-02-03] MEDS: FOLIC ACID/VITAMIN B COMP W-C TABLET PO SCH (08:54)
[2019-02-03] MEDS: SEVELAMER CARBONATE 800 MG TABLET PO SCH ×3 (08:54→18:59)
[2019-02-03 12:00] VITALS: BP 111/60
[2019-02-03] MEDS: HYDROCODONE/ACETAMINOPHEN 5/325MG TABLET PO PRN (13:01)
[2019-02-03 16:00] VITALS: BP 150/76
[2019-02-03 20:35] VITALS: BP 150/80
[2019-02-03] MEDS: ACETAMINOPHEN 325MG TABLET PO PRN (21:37)
[2019-02-04 04:00] VITALS: BP 117/69
[2019-02-04 06:57] LABS: BASOPHILS % 1.8 % (0.0-2.0); EOSINOPHILS % 9.5 % (0.0-5.0); HEMATOCRIT. 31.8 % (42.0-52.0); HEMOGLOBIN. 10.4 g/dL (14.0-18.0); MEAN CORPUSCULAR HEMOGLOBIN 30.8 pg (28.0-32.0); MEAN CORPUSCULAR VOLUME 94.8 fL (80.0-94.0); MEAN PLATELET VOLUME 7.4 fl (7.4-10.4); MONOCYTES % 8.8 % (2.0-8.0); NEUTROPHILS % 64.9 % (40.0-76.0); PLATELET 324 x1000/uL (130-400); RED BLOOD CELL COUNT 3.36 mill/uL (4.7-6.1); RED CELL DISTRIBUTION WIDTH 17.2 % (11.6-14.6)
[2019-02-04] MEDS: HYDROCODONE/ACETAMINOPHEN 5/325MG TABLET PO PRN ×2 (06:58→15:37)
[2019-02-04 07:23] LABS: PROTHROMBIN TIME 10.1 sec (9.6-11.0)
[2019-02-04 07:54] VITALS: BP 113/66
[2019-02-04] MEDS: SEVELAMER CARBONATE 800 MG TABLET PO SCH ×3 (08:44→18:17)
[2019-02-04] MEDS: FOLIC ACID/VITAMIN B COMP W-C TABLET PO SCH (08:44)
[2019-02-04] MEDS ORDERED: DIPHENHYDRAMINE 50MG/ML VIAL IV PRN (12:45)
[2019-02-04 15:58] VITALS: BP 152/87
[2019-02-04 20:04] VITALS: BP 154/81
[2019-02-05 00:33] VITALS: BP 157/86
[2019-02-05] MEDS: SEVELAMER CARBONATE 800 MG TABLET PO SCH (07:50)
[2019-02-05 07:57] VITALS: BP 93/45
[2019-02-05] MEDS: FOLIC ACID/VITAMIN B COMP W-C TABLET PO SCH (09:00)
[2019-02-05 12:05] VITALS: BP 126/67
== END 2019-02-05 12:45 | disposition left against medical advice (07) | DRG 425 ==
LOC: ER 08:32 → 6WST 11:05 → EDBEDREQTM 11:07 → EDBEDREQ 11:07 → ENRESERV 12:59 → 6WST 14:20
PROVIDERS: ADMIT Internal Medicine; ATTEND Internal Medicine
PROC: 5A1D70Z Performance of Urinary Filtration, Intermittent, Less than 6 Hours Per Day (ICD-10-PCS; 2019-01-31)
PROC: 5A1D70Z Performance of Urinary Filtration, Intermittent, Less than 6 Hours Per Day (ICD-10-PCS; 2019-02-01)
PROC: 5A1D70Z Performance of Urinary Filtration, Intermittent, Less than 6 Hours Per Day (ICD-10-PCS; 2019-02-03)
PROC: 0W9G3ZZ Drainage of Peritoneal Cavity, Percutaneous Approach (ICD-10-PCS; principal; 2019-02-04)
DX: E87.70 Fluid overload, unspecified (principal); I13.2 Hypertensive heart and chronic kidney disease with heart failure and with stage 5 chronic kidney disease, or end stage renal disease; I27.20 Pulmonary hypertension, unspecified; E46 Unspecified protein-calorie malnutrition; I12.0 Hypertensive chronic kidney disease with stage 5 chronic kidney disease or end stage renal disease; E83.39 Other disorders of phosphorus metabolism; E83.41 Hypermagnesemia; R18.8 Other ascites; E83.42 Hypomagnesemia; N18.6 End stage renal disease; I50.32 Chronic diastolic (congestive) heart failure; E83.51 Hypocalcemia; D63.8 Anemia in other chronic diseases classified elsewhere; K40.20 Bilateral inguinal hernia, without obstruction or gangrene, not specified as recurrent; F41.9 Anxiety disorder, unspecified; G89.4 Chronic pain syndrome; I25.10 Atherosclerotic heart disease of native coronary artery without angina pectoris; I50.9 Heart failure, unspecified; N28.1 Cyst of kidney, acquired; Z99.2 Dependence on renal dialysis; Z88.5 Allergy status to narcotic agent; Z68.1 Body mass index [BMI] 19.9 or less, adult
CPT/HCPCS: 36415; 49083; 71045; 74176; 80048; 80061; 82607; 82728; 82746; 82962; 83036; 83540; 83550; 83605; 83735; 84100; 84145; 84443; 93005; 99285; J1200

== ENCOUNTER 2019-02-17 15:40 | Inpatient (IN) | payer MEDICAID ==
[~2019-02-17] VITALS: Ht 180.3 cm; Wt 85.3 kg
[2019-02-17 19:01] LABS: CHLORIDE 98 mEq/L (98-107); PARTIAL THROMBOPLASTIN TIME 30.5 sec (23.4-31.0); PROTHROMBIN TIME 10.6 sec (9.6-11.0)
[2019-02-17 19:08] LABS: BASOPHILS % 1.5 % (0.0-2.0); EOSINOPHILS % 3.9 % (0.0-5.0); HEMATOCRIT. 32.8 % (42.0-52.0); HEMOGLOBIN. 10.7 g/dL (14.0-18.0); LYMPHOCYTES % 13.2 % (20.0-50.0); MEAN CORPUSCULAR VOLUME 95.3 fL (80.0-94.0); MEAN PLATELET VOLUME 7.3 fl (7.4-10.4); MONOCYTES % 10.5 % (2.0-8.0); NEUTROPHILS % 70.9 % (40.0-76.0); PLATELET 377 x1000/uL (130-400); RED BLOOD CELL COUNT 3.44 mill/uL (4.7-6.1); RED CELL DISTRIBUTION WIDTH 17.4 % (11.6-14.6)
[2019-02-17] MEDS ORDERED: INSULIN REGULAR (HUMULIN R) 300UNITS/3ML IV ONE (19:15)
[2019-02-17] MEDS ORDERED: SODIUM BICARBONATE 8.4% 1 MEQ/ML 50ML SYR IV ONE (19:15)
[2019-02-17] MEDS ORDERED: DEXTROSE 50% WATER 50ML SYRINGE IV ONE (19:15)
[2019-02-17] MEDS ORDERED: CALCIUM CHLORIDE 1GM/10ML SYR IV ONE (19:15)
[2019-02-17 19:22] LABS: BG CARBOXYHEMOGLOBIN 1.2 % (0.5-1.5); BG DEOXYHEMOGLOBIN 5.4 % (0.0-5.0); BG FRACTION INSPIRED OXYGEN 21; BG HCO3 ACT 16.9 mmol/L (22.0-26.0); BG METHEMOGLOBIN 0.1 % (0.0-1.5); BG OXYGEN SATURATION 94.5 % (92.0-98.5); BG OXYHEMOGLOBIN 93.3 % (94.0-97.0); BG PCO2 29.8 mmHg (35.0-45.0); BG PH 7.372 (7.350-7.450); BG PO2 84.2 mmHg (75.0-100.0); BG SAMPLE SITE RIGHT RADIAL; BG TOTAL HEMOGLOBIN 13.1 g/dL (12.0-18.0); BG VENT MODE ROOM AIR
[2019-02-17 19:33] LABS: PHOSPHORUS 9.7 mg/dL (2.5-4.9)
[2019-02-17] MEDS ORDERED: SODIUM POLYSTYRENE SULFONATE 15 G/60 ML BOT PO NR (21:30)
[2019-02-17 22:10] VITALS: BP 192/104
[2019-02-17 22:30] VITALS: BP 192/104
[2019-02-18] VITALS: BP 147/85
[2019-02-18 04:00] VITALS: BP 170/104
[2019-02-18] MEDS: CLONIDINE 0.1MG TABLET PO PRN (05:50)
[2019-02-18] MEDS: HYDROCODONE/ACETAMINOPHEN 10/325MG TABLET PO PRN ×3 (05:50→23:05)
[2019-02-18 08:00] VITALS: BP 109/61
[2019-02-18] MEDS: NIFEDIPINE XL 60MG TAB PO SCH (09:00)
[2019-02-18] MEDS: HEPARIN 5000 UNITS/ML VIAL SUBCUT SCH ×2 (09:00→21:00)
[2019-02-18 09:32] LABS: BASOPHILS % 2.4 % (0.0-2.0); EOSINOPHILS % 4.6 % (0.0-5.0); HEMATOCRIT. 30.2 % (42.0-52.0); HEMOGLOBIN. 10.1 g/dL (14.0-18.0); LYMPHOCYTES % 14.4 % (20.0-50.0); MEAN CORPUSCULAR HEMOGLOBIN 31.8 pg (28.0-32.0); MEAN CORPUSCULAR VOLUME 95.2 fL (80.0-94.0); MEAN PLATELET VOLUME 7.4 fl (7.4-10.4); MONOCYTES % 10.6 % (2.0-8.0); PLATELET 335 x1000/uL (130-400); RED BLOOD CELL COUNT 3.18 mill/uL (4.7-6.1); RED CELL DISTRIBUTION WIDTH 17.9 % (11.6-14.6)
[2019-02-18 12:00] VITALS: BP 132/79
[2019-02-18] MEDS: AMOXICILLIN 250MG CAPSULE PO SCH (17:09)
[2019-02-18 18:58] VITALS: BP 146/96
[2019-02-18 23:00] VITALS: BP 158/96
[2019-02-19] MEDS: CLONIDINE 0.1MG TABLET PO PRN (03:40)
[2019-02-19 03:45] VITALS: BP 179/99
[2019-02-19] MEDS: HYDROCODONE/ACETAMINOPHEN 10/325MG TABLET PO PRN ×3 (05:02→20:49)
[2019-02-19 07:07] LABS: BASOPHILS % 1.5 % (0.0-2.0); EOSINOPHILS % 7.9 % (0.0-5.0); HEMATOCRIT. 27.5 % (42.0-52.0); LYMPHOCYTES % 20.8 % (20.0-50.0); MEAN CORPUSCULAR HEMOGLOBIN 31.3 pg (28.0-32.0); MEAN CORPUSCULAR VOLUME 95.6 fL (80.0-94.0); MEAN PLATELET VOLUME 7.4 fl (7.4-10.4); MONOCYTES % 13.3 % (2.0-8.0); NEUTROPHILS % 56.5 % (40.0-76.0); PLATELET 295 x1000/uL (130-400); RED BLOOD CELL COUNT 2.88 mill/uL (4.7-6.1)
[2019-02-19 08:06] VITALS: BP 150/103
[2019-02-19] MEDS: NIFEDIPINE XL 60MG TAB PO SCH (08:11)
[2019-02-19] MEDS: AMOXICILLIN 250MG CAPSULE PO SCH (08:12)
[2019-02-19] MEDS: HEPARIN 5000 UNITS/ML VIAL SUBCUT SCH ×2 (09:00→20:53)
[2019-02-19] MEDS ORDERED: SODIUM BICARBONATE 4% (2.4MEQ) 5ML VIAL IV ONE (10:39)
[2019-02-19 14:06] VITALS: BP 144/88
[2019-02-19] MEDS: DIPHENHYDRAMINE 50MG/ML VIAL IV PRN (14:26)
[2019-02-19 16:00] VITALS: BP 161/90
[2019-02-19 18:00] VITALS: BP 165/90
[2019-02-19 20:00] VITALS: BP_SYST 141; BP_SYST 163; BP_DIAS 81
[2019-02-20] VITALS: BP 141/81
[2019-02-20 04:00] VITALS: BP 122/70
[2019-02-20] MEDS: HYDROCODONE/ACETAMINOPHEN 10/325MG TABLET PO PRN ×3 (04:39→23:48)
[2019-02-20 08:13] LABS: BASOPHILS % 1.7 % (0.0-2.0); EOSINOPHILS % 8.1 % (0.0-5.0); HEMATOCRIT. 29.6 % (42.0-52.0); HEMOGLOBIN. 9.8 g/dL (14.0-18.0); LYMPHOCYTES % 16.8 % (20.0-50.0); MEAN CORPUSCULAR HEMOGLOBIN 31.6 pg (28.0-32.0); MEAN PLATELET VOLUME 7.2 fl (7.4-10.4); MONOCYTES % 12.5 % (2.0-8.0); NEUTROPHILS % 60.9 % (40.0-76.0); PLATELET 282 x1000/uL (130-400); RED BLOOD CELL COUNT 3.11 mill/uL (4.7-6.1); RED CELL DISTRIBUTION WIDTH 17.3 % (11.6-14.6)
[2019-02-20 08:15] VITALS: BP 139/68
[2019-02-20] MEDS: HEPARIN 5000 UNITS/ML VIAL SUBCUT SCH ×2 (09:00→21:00)
[2019-02-20] MEDS: AMOXICILLIN 250MG CAPSULE PO SCH ×2 (10:05→17:08)
[2019-02-20] MEDS: NIFEDIPINE XL 60MG TAB PO SCH (10:06)
[2019-02-20 12:10] VITALS: BP 150/84
[2019-02-20 20:00] VITALS: BP 163/87
[2019-02-20 23:48] VITALS: BP 154/94
[2019-02-21 04:00] VITALS: BP 150/82
[2019-02-21] MEDS: HYDROCODONE/ACETAMINOPHEN 10/325MG TABLET PO PRN (06:33)
[2019-02-21 08:00] VITALS: BP 129/78
[2019-02-21 08:21] VITALS: BP 157/95
[2019-02-21] MEDS: HEPARIN 5000 UNITS/ML VIAL SUBCUT SCH ×2 (09:00→20:58)
[2019-02-21] MEDS: NIFEDIPINE XL 60MG TAB PO SCH (09:32)
[2019-02-21] MEDS: AMOXICILLIN 250MG CAPSULE PO SCH (09:32)
[2019-02-21 12:00] VITALS: BP_SYST 129; BP_SYST 141; BP_DIAS 78; BP_DIAS 86
[2019-02-21 16:00] VITALS: BP 148/81
[2019-02-21 20:00] VITALS: BP 155/92
[2019-02-22] VITALS: BP 121/79
[2019-02-22] MEDS: HYDROCODONE/ACETAMINOPHEN 10/325MG TABLET PO PRN (02:37)
[2019-02-22] MEDS: DIPHENHYDRAMINE 50MG/ML VIAL IV PRN (06:11)
[2019-02-22 08:19] VITALS: BP 157/95
[2019-02-22] MEDS ORDERED: AMOXICILLIN 250MG CAPSULE PO SCH (09:00)
[2019-02-22] MEDS: HEPARIN 5000 UNITS/ML VIAL SUBCUT SCH (09:00)
[2019-02-22] MEDS: NIFEDIPINE XL 60MG TAB PO SCH (09:24)
== END 2019-02-22 10:48 | disposition home or self-care (01) | DRG 425 ==
LOC: ER 15:40 → 7WST 19:13 → EDBEDREQ 19:15 → ENRESERV 20:35 → 7WST 23:28
PROVIDERS: ADMIT Internal Medicine; ATTEND Internal Medicine
PROC: 5A1D70Z Performance of Urinary Filtration, Intermittent, Less than 6 Hours Per Day (ICD-10-PCS; 2019-02-18)
PROC: 0W9G3ZZ Drainage of Peritoneal Cavity, Percutaneous Approach (ICD-10-PCS; principal; 2019-02-19)
PROC: 5A1D70Z Performance of Urinary Filtration, Intermittent, Less than 6 Hours Per Day (ICD-10-PCS; 2019-02-21)
DX: E87.5 Hyperkalemia (principal); I13.2 Hypertensive heart and chronic kidney disease with heart failure and with stage 5 chronic kidney disease, or end stage renal disease; N17.9 Acute kidney failure, unspecified; E46 Unspecified protein-calorie malnutrition; I27.20 Pulmonary hypertension, unspecified; N18.6 End stage renal disease; E87.2 Acidosis; E83.39 Other disorders of phosphorus metabolism; E83.41 Hypermagnesemia; R18.8 Other ascites; E83.51 Hypocalcemia; D63.8 Anemia in other chronic diseases classified elsewhere; F41.9 Anxiety disorder, unspecified; G89.4 Chronic pain syndrome; I50.9 Heart failure, unspecified; K04.7 Periapical abscess without sinus; K40.20 Bilateral inguinal hernia, without obstruction or gangrene, not specified as recurrent; Z91.14 Patient's other noncompliance with medication regimen; Z99.2 Dependence on renal dialysis; Z91.19 Patient's noncompliance with other medical treatment and regimen; Z88.5 Allergy status to narcotic agent; Z91.15 Patient's noncompliance with renal dialysis; Z68.26 Body mass index [BMI] 26.0-26.9, adult
CPT/HCPCS: 36415; 36600; 49083; 71045; 80048; 82375; 82805; 83735; 84100; 84484; 93005; 93970; 96374; 96375; 99291; J1200; J1644; J1815; J3490